=== PATIENT | female | born 1935 | race Caucasian/White ===

== ENCOUNTER → 2016-06-01 16:29 | Outpatient (CLI) | payer MEDICARE ==
[2014-12-08 13:33] VITALS: BMI 19.0
[~2016-06-01 16:29] MED LIST: ADVAIR 500/501 DISK INH; COREG6.25 MG OR; FAMOTIDINE10 MG; IPRAT-ALBUT 0.5-3 ML INH; K-DUR20 MEQ PO; LASIX40 MG OR; LEVAQUIN750 MG PO; LISINOPRIL5 MG PO; LOPRESSOR25 MG PO; MILK OF MAGNESI30 ML OR; PRILOSEC20 MG PO; THEOCHRON300 MG OR; TRAZODONE HCL150 MG PO
== END | disposition home or self-care (01) ==
LOC: D.MAMMO 11:30
DX: Z12.31 Encounter for screening mammogram for malignant neoplasm of breast (principal)

== ENCOUNTER → 2016-11-18 08:16 | Outpatient (CLI) | payer MEDICARE ==
[2014-12-08 13:33] VITALS: BMI 19.0
== END | disposition home or self-care (01) ==
LOC: D.RT 11-16 11:00
DX: J44.9 Chronic obstructive pulmonary disease, unspecified (principal)

== ENCOUNTER 2016-12-10 18:10 | Inpatient (IN) | payer MEDICARE ==
[~2016-12-10] VITALS: Ht 157.5 cm; Wt 52.2 kg
--- NOTE | ~2016-12-10 | PRO ---
PATIENT:HEBER BISHOP MEDICAL RECORD: [id number] : 31 LOCATION:D.M2 D.2114 ADMISSION DATE: 12/10/16 PROCEDURE PERFORMED BY: JOHN FOFANA MD PROCEDURE DATE: 12/10/16 DATE OF PROCEDURE: 12/12/2016 PATIENT ESCORT: John Fofana MD PROCEDURE: EGD with biopsy. INDICATION: The patient is an 80-year-old white female with history of COPD, CHF, hypertension and bronchiectasis, who was admitted with significant anemia. She denies any obvious GI blood loss. She is on aspirin and Eliquis at home. Her last colonoscopy was in January 2016 and was normal other than mild sigmoid diverticulosis. Her last EGD was in September 2015 and revealed mild reflux induced esophagitis and moderate erosive antral gastritis felt due to aspirin/Aleve. She still is on a baby aspirin a day and takes Aleve only rarely now, ____ about once a month per her report. She had an admission in January 2014 with a small-bowel obstruction, which led to exploratory laparotomy with lysis of adhesions. She does have a remote history of colon polyps as well as chronic intermittent dysphagia status post multiple dilations in the past. She is now for EGD. PREMEDICATION: Taper anesthesia. INSTRUMENT: Olympus video gastroscope. FINDINGS: The endoscope was passed through the oropharynx to the second portion of the duodenum without difficulty. The esophagus was basically normal other than a very large 10 cm hiatal hernia with some mild Juan erosions. She also had mild erosive antral gastritis, probably from aspirin/occasional Aleve use. The duodenum was entered and was completely normal. Biopsy obtained from stomach to rule out H. pylori by means of histology. The rest of exam was normal. She had no ulcerations or AVMs seen. The patient tolerated the procedure well without any immediate complication. IMPRESSION: 1. Development of a large hiatal hernia associated with Juan erosions most likely cause of slow gastrointestinal blood loss exacerbated by her aspirin and Eliquis use. 2. Mild erosive antral gastritis, probably due to her aspirin daily and occasional Aleve. 4. Otherwise, normal esophagogastroduodenoscopy. RECOMMENDATIONS: 1. I will increase her omeprazole or Protonix to twice daily. 2. Follow up gastric biopsies. 3. Okay for discharge planning for me. 4. This lady will now be at risk for long-term anemia with slow PROCEDURE NOTE [id number] HEBER BISHOP gastrointestinal blood loss due to her large hiatal hernia and Juan erosions. ____ especially with her being on blood thinners. I suspect it would be best for her to stop her aspirin and then continue her Eliquis. She needs to have her hematocrit checked about every month or so. Another option would be to add low dose long-term iron supplementation such as 325 mg of iron sulfate daily. However, it will cause her stool to turn dark/black which can be a complicating and confusing issue to all involved long-term. 5. Regular diet. TRANSINT:[id number] Voice Confirmation ID: [id number] DOCUMENT ID: [id number] JOHN FOFANA MD CC: LIZA YOON MD [id number] DICTATION DATE: 12/12/161735 DEPUTY COURT CLERK: 12/15/16 0042 DIS IN 12/13/16 [facility] [address] [place] [address]
[2016-12-10 19:43] LABS: BASOPHILS 0.6 % (0-2); EOSINOPHILS 3.8 % (0-7); IMMATURE GRANULOCYTES 0.3 % (0-5); LYMPHOCYTES 19.5 % (15-50); MCH 20.5 pg (26.0-34.0); MCHC 28.5 g/dL (31.0-37.0); MONOCYTES 12.8 % (2-11); RBC 3.61 10x6/uL (4.00-5.40); RDW 17.2 % (11.5-14.5); WBC 9.8 10x3/uL (4.8-10.8)
[2016-12-10 19:46] LABS: PLATELET COUNT 320 10x3/uL (130-400)
[2016-12-10 19:47] LABS: HEMOGLOBIN 7.4 g/dL (12-16)
[2016-12-10 19:52] LABS: INR 1.27 (0.85-1.17); PROTIME 15.8 SECONDS (11.6-15.0)
[2016-12-10 19:56] LABS: ALBUMIN 2.9 g/dL (3.4-5.0); ALKALINE PHOSPHATASE 67 U/L (46-116); ALT (SGPT) 12 U/L (10-68); CALC OSMOLALITY 294 mosm/kg (275-300); CALCIUM 9.6 mg/dL (8.5-10.1); CARBON DIOXIDE 30.6 mmol/L (21.0-32.0); CHLORIDE - SERUM 106 mmol/L (98-107); CREATININE - SERUM 1.5 mg/dL (0.6-1.3); SODIUM 144 mmol/L (136-145); UREA NITROGEN 30 mg/dL (7-18); eGFR NON AFRICAN AMERICAN 35 mL/min (90-120)
[2016-12-10 19:58] LABS: GLUCOSE 132 mg/dL (74-106)
[2016-12-10 20:06] LABS: CREATINE KINASE 35 UL (21-215); MAGNESIUM - SERUM 2.2 mg/dL (1.8-2.4); PRO BNP 1307 pg/mL (0-450)
[2016-12-10 20:07] LABS: TROPONIN-I < 0.017 ng/mL (0.000-0.060)
--- NOTE | 2016-12-10 20:45 | NUR ---
PT ARRIVES FROM ER ACCOMPANIED BY MULTIPLE FAMILY MEMBERS AND FISHER TROLL LINE. ASSISTED INTO BED. TELEMETRY PLACED ONTO PT, NSR ON THE MONITOR - NO ECTOPICS SEEN. O2 2LPM NC PLACED, SATS 96%. MEDICATIONS RECONCILED ASND ADMISSION ASSESSMENT AND HISTORY COMPLETED. UNIT ROUNTINES AND PROTOCOLS DISCUSSED WITH PT AND FAMILY, VERBALIZED UNDERSTANDING. CALL LIGHT PLACED WITHIN REACH. WILL CONT TO MONITOR.
[2016-12-10 21:33] VITALS: BP 129/56; BMI 21.0
[2016-12-10 23:42] LABS: CKMB 0.3 U/L (0.0-3.6); CREATINE KINASE 37 UL (21-215); TROPONIN-I < 0.017 ng/mL (0.000-0.060)
--- NOTE | 2016-12-11 00:25 | NUR ---
FIRST UNIT OF BLOOD INFUSING TO 20 GAUGE IN LEFT FOREARM, VITALS STABLE. TEMP 98.1, HR 71, RESPERATIONS EVEN AT 16, BP 123/52.
--- NOTE | 2016-12-11 03:23 | NUR ---
FIRST UNIT OF PRBCS FINISHED INFUSING, VITALS STABLE. LINE FLUSHING WITH NS. UP WITH ASSIST TO BR.
--- NOTE | 2016-12-11 03:25 | NUR ---
NO S/S ADVERSE REACTION NOTED FROM FIRST UNIT OF RBCS GIVEN.
[2016-12-11 04:00] VITALS: BP 134/65
--- NOTE | 2016-12-11 04:22 | NUR ---
SECOND UNIT OF PRBCS INFUSING, VITALS REMIAN STABLE. WILL CONT TO MONITOR.
--- NOTE | 2016-12-11 06:58 | NUR ---
SECOND UNIT OF PRBCS FINISHED INFUSING, LINE FLUSHING WITH NS. VITALS STABLE, NO S/S ADVERSE REACTION NOTED. AT BED SIDE.
--- NOTE | 2016-12-11 07:45 | NUR ---
PT RESTING QUIETLY RESP UNLABORED NAD NOTED AT BEDSIDE
[2016-12-11 08:00] VITALS: BP 160/80
[2016-12-11 09:45] LABS: CKMB 0.3 U/L (0.0-3.6); CREATINE KINASE 44 UL (21-215)
[2016-12-11 09:46] LABS: TROPONIN-I < 0.017 ng/mL (0.000-0.060)
[2016-12-11 10:54] LABS: BASOPHILS 0.9 % (0-2); EOSINOPHILS 3.9 % (0-7); HEMATOCRIT 34.8 % (36.0-48.0); HEMOGLOBIN 10.6 g/dL (12-16); IMMATURE GRANULOCYTES 0.5 % (0-5); LYMPHOCYTES 14.8 % (15-50); MCH 22.9 pg (26.0-34.0); MCHC 30.5 g/dL (31.0-37.0); MCV 75.2 fL (80.0-100.0); MEAN PLATELET VOLUME 8.3 fL (7.4-10.4); MONOCYTES 15.4 % (2-11); NEUTROPHILS 64.5 % (40-80); PLATELET COUNT 330 10x3/uL (130-400); RBC 4.63 10x6/uL (4.00-5.40); RDW 18.1 % (11.5-14.5); WBC 8.2 10x3/uL (4.8-10.8)
[2016-12-11 11:13] LABS: CALC OSMOLALITY 283 mosm/kg (275-300); CALCIUM 8.6 mg/dL (8.5-10.1); CARBON DIOXIDE 31.1 mmol/L (21.0-32.0); CHLORIDE - SERUM 102 mmol/L (98-107); CKMB 0.3 U/L (0.0-3.6); CREATINE KINASE 45 UL (21-215); CREATININE - SERUM 1.5 mg/dL (0.6-1.3); GLUCOSE 106 mg/dL (74-106); POTASSIUM - SERUM 3.7 mmol/L (3.5-5.1); SODIUM 140 mmol/L (136-145); TROPONIN-I < 0.017 ng/mL (0.000-0.060); UREA NITROGEN 27 mg/dL (7-18); eGFR NON AFRICAN AMERICAN 35 mL/min (90-120)
[2016-12-11 12:00] VITALS: BP 136/69
[2016-12-11 16:00] VITALS: BP 116/66
[2016-12-11 16:51] LABS: HEMOGLOBIN 10.7 g/dL (12-16)
--- NOTE | 2016-12-11 20:34 | NUR ---
RESUMED CARE OF PT, LYING IN BED RESPIRATIONS EVEN AND UNLABORED ON 2LPM VIA NC. 80 SR ON TELEMETRY. LEFT FOREARM SALINE LOCKED. PLAN OF CARE DISCUSSED. CALL LIGHT IN REACH. WILL CONITNUE TO MONITOR. SEE NURSE ASSESSMENT.
[2016-12-11 22:41] VITALS: BP 109/55
[2016-12-12 01:14] LABS: HEMATOCRIT 35.3 % (36.0-48.0); HEMOGLOBIN 10.8 g/dL (12-16)
[2016-12-12 02:51] VITALS: BP 110/60
--- NOTE | 2016-12-12 03:03 | NUR ---
CALL LIGHT IN REACH, WILL CONTINUE WITH PLAN OF CARE. 68 SR ON TELEMETRY
[2016-12-12 05:27] VITALS: BP 108/58
[2016-12-12 08:00] VITALS: BP 106/58
[2016-12-12 08:53] LABS: HEMATOCRIT 36.2 % (36.0-48.0)
--- NOTE | 2016-12-12 09:36 | NUR ---
TELEMETRY ST. RESP UL ON 02 2L MI. NPO FOR EGD. WILL CONT. PLAN OF CARE.
[2016-12-12 12:00] VITALS: BP 119/83
[2016-12-12 12:47] VITALS: Ht 157.5 cm; Wt 52.2 kg
[2016-12-12 16:00] VITALS: BP 115/56
[2016-12-12 16:06] LABS: HEMATOCRIT 36.4 % (36.0-48.0)
--- NOTE | 2016-12-12 16:51 | NUR ---
LEAVING FOR GI LAB BY BED.
--- NOTE | 2016-12-12 19:28 | NUR ---
RESUMED CARE OF PT, UP IN BED RESPIRATIONS EVEN AND UNLABORED ON ROOM AIR. 98 SR ON TELEMETRY. LEFT FOREARM SALINE LOCKED. NO NEEDS VOICED AT THIS TIME. CALL LIGHT IN REACH. WILL CONTINUE TO MONITOR. SEE NURSE ASSESSMENT.
[2016-12-12 21:50] VITALS: BP 103/53
--- NOTE | 2016-12-13 00:28 | NUR ---
MECHANICAL FITTER AT BEDSIDE TO OBTAIN VITALS, CALL LIGHT IN REACH. WILL CONTINUE WITH PLAN OF CARE.
[2016-12-13 01:18] VITALS: BP 136/72
[2016-12-13 05:35] VITALS: BP 113/60
[2016-12-13 06:33] LABS: ANION GAP 13.3 mmol/L (8-16); CALCIUM 8.2 mg/dL (8.5-10.1); CARBON DIOXIDE 26.3 mmol/L (21.0-32.0); CREATININE - SERUM 1.3 mg/dL (0.6-1.3); POTASSIUM - SERUM 3.6 mmol/L (3.5-5.1)
[2016-12-13 06:50] LABS: BASOPHILS 0.4 % (0-2); EOSINOPHILS 3.5 % (0-7); HEMATOCRIT 35.1 % (36.0-48.0); HEMOGLOBIN 10.6 g/dL (12-16); IMMATURE GRANULOCYTES 0.2 % (0-5); LYMPHOCYTES 14.6 % (15-50); MCH 23.1 pg (26.0-34.0); MCHC 30.2 g/dL (31.0-37.0); MCV 76.6 fL (80.0-100.0); MEAN PLATELET VOLUME 8.6 fL (7.4-10.4); NEUTROPHILS 65.3 % (40-80); PLATELET COUNT 320 10x3/uL (130-400); RBC 4.58 10x6/uL (4.00-5.40); RDW 18.9 % (11.5-14.5); WBC 9.7 10x3/uL (4.8-10.8)
[2016-12-13 08:00] VITALS: BP 104/67
--- NOTE | 2016-12-13 11:22 | NUR ---
02 SAT 90% ON RA AT REST. 02 SAT DROPPED TO 86% ON RA AMNULATING HALLWAY. WILL MONITOR.
[2016-12-13 12:00] VITALS: BP 102/48
[2016-12-13] MEDS ORDERED: ELIQUIS2.5 MG PO (12:42)
--- NOTE | 2016-12-13 15:09 | NUR ---
Patient Name: HEBER BISHOP Admission Status: ER Accout number: [id number] Admission Date: 12-10-2016 : 1935 Admission Diagnosis:SHORTNESS OF BREATH Attending: CHUCK Current LOS: 3 Anticipated DC Date: 12-13-2016 Planned Disposition: Home Primary Insurance: [employer] CHOICE PPO MCR ADVANT Discharge Planning Comments: * Is the patient Alert and Oriented? Yes 0 * How many steps to enter\exit or inside your home? NONE 0 * PCP DR. YOON 0 * Pharmacy [facility] 0 * Preadmission Environment Home with Family 0 * ADLs Independent 0 * Equipment Nebulizer 0 * Other Equipment NEBULIZER FROM A FAMILY MEMBER - REQUESTING NEW ONE NO MEDICAL EQUIPMENT PROVIDER PREFERENCE 0 * List name and contact numbers for known caregivers / representatives who currently or will assist patient after discharge: STEPHAN VO, DAUGHTER, BELLO BISHOP, SPOUSE, 0 * Community resources currently utilized None 0 * Please name any agencies selected above. NONE 0 * Additional services required to return to the preadmission environment? No 0 * Can the patient safely return to the preadmission environment? Yes 0 * Has this patient been hospitalized within the prior 30 days at any hospital? No 0 CM MET WITH PT AND FAMILY IN ROOM TO DISCUSS DISCHARGE PLANNING AND NEEDS. PT REPORTS LIVING AT HOME INDEPENDENTLY WITH HERSPOUSE. PT HAS NEBULIZER FROM A FAMILY MEMBER AT HOME THAT IS VERY OLD AND WANTS A NEW ONE. PT HAS NO MEDICAL EQUIPMENT PROVIDER PREFERENCE AND NO OUTSIDE SERVICES ASSISTING IN THE HOME. CM DISCUSSED AVAILABILITY OF HOME HEALTH, REHAB SERVICES AND MEDICAL EQUIPMENT. PT DENIES DISCHARGE NEEDS OTHER THAN OXYGEN WHICH PT'S DAUGHTER FEELS PT HAS NEEDED FOR A LONG TIME BUT NEVER QUALIFIED; PT'S DAUGHTER IS HERE TO PICK PT UP FOR DISCHARGE HOME TODAY. IMPORTANT MESSAGE FROM MEDICARE PROVIDED AND EXPLAINED. VAISHNAVI CALLED [facility], , SPOKE TO LEONORA WHO WILL ARRANGE PORTABLE OXYGEN TO BE DELIVERED TO PT IN ROOM FOR DISCHARGE HOME AND ONCE PT GETS HOME, [facility] TO INSTALL HOME UNIT THERE. VAISHNAVI NOTIFIED LEONORA THAT DR. IRWIN DIRECTED VAISHNAVI TO NOTIFY MARINA TO CONTACT DR. YOON FOR ANY NEEDED SIGNATURES AND PAPERWORK. VAISHNAVI FAXED INFORMATION AND SIGNED ORDER TO [phone]. BARIATRIC PHYSICIAN AND PT / FAMILY NOTIFIED. Fish Conservationist: Isidoro Baer
--- NOTE | 2016-12-13 16:14 | NUR ---
IV AND TELEMETRY DCD. DC PLANS GIVEN. UNDERSTANDING VOICED. ESCORTED TO CAR BY W/C.
== END 2016-12-13 16:15 | disposition home or self-care (01) | DRG 811 ==
LOC: D.ER 18:10 → D.M2 20:31 → OBSVTIME 20:32 → D.M2 23:20
PROVIDERS: Emergency Medicine; Internal Medicine Gastroenterology; ADMIT Emergency Medicine
PROC: 0DB68ZX Excision of Stomach, Via Natural or Artificial Opening Endoscopic, Diagnostic (ICD-10-PCS; principal; 2016-12-12 17:00)
DX: D50.9 Iron deficiency anemia, unspecified (principal); K29.01 Acute gastritis with bleeding; I24.8 Other forms of acute ischemic heart disease; I48.0 Paroxysmal atrial fibrillation; I11.0 Hypertensive heart disease with heart failure; I50.9 Heart failure, unspecified; J44.9 Chronic obstructive pulmonary disease, unspecified; K44.9 Diaphragmatic hernia without obstruction or gangrene

== ENCOUNTER 2017-01-25 09:20 | Outpatient (CLI) | payer MEDICARE ==
[2016-12-12 12:47] VITALS: BMI 21.0
--- NOTE | ~2017-01-25 | HEMODYNAMI ---
PATIENT:HEBER BISHOP MEDICAL RECORD: [id number] : 31 [id number] ADMISSION DATE: 01/25/17 Generatedon:01/25/201712:18 Patient name: HEBER BISHOP Patient #: [id number] SSN: : 1935 Date of study: 01/25/2017 Page: Of Hemodynamic Procedure Report Patient Data Patient Demographics Procedure consent was obtained First Name: HEBER Gender: Female Last Name: EDNA : 1935 [facility] Initial: TOMEKA Age: 81 year(s) Patient #: [id number] Race: Unknown Additional ID: [id number] Contact details [address]: [address] [place] [address] DRIVE State: [place] City: [place] Zip code: [address] Past Medical History Allergies: No known allergies Admission Admission Data Admission Date: 01/25/2017 Admission Time: 9:20 Height (in.): 59.84 BSA: 2.04 (m2) Height (cm.): 152 BMI: 48.48 (kg/m2) Weight (lbs.): 246.92 Weight (kg.): 112 Lab Results Lab Result Date: 01/25/2017 Lab Result Time: 0:00 Biochemistry Name Units Result Min Max BUN mg/dl 15 --(--*-)-- 7 18 CK-MB ng/ml 0.5 --(*---)-- 0 3.6 Creatinine mg/dl 1.2 --(---*)-- 0.6 1.3 Creatinine l 43 --(*---)-- 21 215 Kinase Troponin l ng/ml 0.017 --(-*--)-- 0 0.06 CBC Name Units Result Min Max Hemoglobin g/dl 10.6 *-(----)-- 13.5 17.5 Procedure Procedure Types Cath Procedure Diagnostic Procedure [facility] w/Coronaries FFR/IVUS Intra-Coronary IVUS Initial PCI Procedure Coronary Stent Initial Miscellaneous Procedures Moderate Sedation up to 15 minutes Procedure Description Procedure Date Procedure Date: 01/25/2017 Procedure Start Time: 11:52 Procedure End Time: 12:15 Procedure Staff Name Function Sonu Johnson MD Performing Physician Yumiko Marcus RT Scrub Bijal Del Real RN Nurse Susie Melo RT Monitor Procedure Data Cath Procedure Fluoroscopy Diagnostic fluoroscopy Total fluoroscopy Time: 5.3 time: 5.3 min min Diagnostic fluoroscopy Total fluoroscopy dose: 530 dose: 530 mGy mGy Contrast Material Contrast Material Type Amount (ml) Isovue 300 99 Entry Location Entry Primary Successful Side Size Upsize Upsize Entry Closure Hernandez ccessful Closure Location (Fr) 1 (Fr) 2 (Fr) Remarks Device Remarks Radial Right 6 Fr Mechanical artery Short Compression Femoral Right 5 Fr 6 Fr Exoseal artery Short Estimated blood loss: 10 ml Diagnostic catheters Device Type Used For End Catheter Placement Cordis 5Fr Pigtail Procedure Catheter (MP) Cordis 5Fr JL 4.0 Left Coronary Catheter (MP) Angiography Cordis 5Fr 3DRC Catheter Procedure (MP) Procedure Complications No complications Procedure Medications Medication Administration Route Dosage Oxygen NC 2 l/min Heparin Flush Bag added to field 2 bags (1000units/500ml NS) Lidocaine 2% added to field 20 Radial Cocktail added to field 1 syringe (Verapomil 2mg/Nitro 400mcg/Heparin 1500units) Fentanyl I.V. 50 mcg Versed I.V. 1 mg Radial Cocktail I.A. 1 syringe (Verapomil 2mg/Nitro 400mcg/Heparin 1500units) Heparin Bolus I.V. 4000 units Integrilin (Bolus 4.5 ml 2mg/ml) Hemodynamics Rest BSA: 2.04 (m2) HGB: 10.6 (g/dl) O2 Consumption: Estimated: 172.22 (ml/min) O2 Co nsumption indexed: Estimated:84.42 (ml/min/m) Heart Rate: 57 (bpm) Snapshots Pre Cath Intra NCS Post Cath Vital Signs Time Heart Resp SPO2 NIBP (mmHg) Rhythm Pain Sedation Rate (ipm) (%) Status Level (bpm) 11:53:36 66 12 86 161/81(118) NSR 0 (11) 9(A) , No pain 11:57:52 92 16 85 134/76(114) NSR 0 (11) 9(A) , No pain 12:02:08 83 17 92 135/51(105) NSR 0 (11) 9(A) , No pain 12:06:18 84 19 93 140/71(108) NSR 0 (11) 9(A) , No pain 12:10:26 85 17 97 145/78(111) NSR 0 (11) 9(A) , No pain 12:14:40 84 17 97 134/69(88) NSR 0 (11) 9(A) , No pain Medications Time Medication Route Dose Verified Delivered Reason Note s Effectiveness by by 11:43:52 Oxygen NC 2 l/min Bijal Bijal used for Del Real Del Real charger tester RN 11:43:58 Heparin Flush added 2 bags Bijal Bijal used for Bag to Del Real Del Real procedure (1000units/500ml field RN RN NS) 11:44:06 Lidocaine 2% added 20ml Bijal Bijal used for to vial Del Real Del Real procedure field RN RN 11:44:34 Radial Cocktail added 1 Bijal Bijal used for (Verapomil to syringe Del Real Del Real procedure 2mg/Nitro field RN RN 400mcg/Heparin 1500units) 11:52:05 Fentanyl I.V. 50 mcg Bijal Bijal for sedation Del Real Del Real RN RN 11:52:14 Versed I.V. 1 mg Bijal Bijal for sedation Del Real Del Real RN RN 11:55:13 Radial Cocktail I.A. 1 Bijal Sonu for (Verapomil syringe Del Real Louisth MD vasodilation 2mg/Nitro RN 400mcg/Heparin 1500units) 12:03:33 Heparin Bolus I.V. 4000 Bijal Bijal for units Del Real Del Real anticoagulation RN RN 12:05:13 Integrilin 4.5 ml Bijal Bijal for 5.5m l (Bolus 2mg/ml) Del Real Del Real anticoagulation bolus RN RN integrilin wasted Procedure Log Time Note 11:32:45 Patient Height : 152 cm 11:32:58 Patient Weight : 112 kg 11:33:56 Diagnostic Cath status Elective 11:33:59 Yumiko Marcus RT(R) sent for patient. Start room use. 11:34:00 Time tracking: Regular hours 11:34:05 Plan of Care:Hemodynamics will remain stable., Cardiac rhythm will remain stable., Comfort level will be maintained., Respiratory function will remain adequate., Patient/ family verbilizes understanding of procedure., Procedure tolerated without complication., Recovers from procedure without complications.. 11:34:10 Patient received from ED to CCL 2 Alert and oriented. Tansferred to table in Supine position. 11:34:11 Warm blankets applied, and kandy hugger turned on for patient comfort. 11:34:12 Correct patient and procedure confirmed by team. 11:34:13 Signed procedure consent form obtained from patient. 11:34:28 H&P Date Dictated: 01/25/2017 Emergent; H&P N/A. 11:34:30 Pre-procedure instructions explained to patient. 11:34:49 Family in waiting room. 11:34:51 Patient NPO since Midnight. 11:35:09 Patient allergic to No known allergies 11:35:31 Is the patient allergic to Iodine/contrast media? No. 11:36:05 Is patient on blood thinner?No 11:36:19 Patient diabetic? No. 11:36:30 Snore? Yes 11:36:32 Sleep apnea? No 11:36:40 Airway obstruction? Yes COPD 11:36:43 Dentures? No ? 11:37:02 Patient pain scale 3/10 ?. 11:37:12 IV patent on arrival in left forearm with 0.9% NaCl at O. 11:38:22 Lab Result : Creatinine 1.2 mg/dl 11:38:22 Lab Result : BUN 15 mg/dl 11:38:22 Lab Result : CK-MB 0.5 ng/ml 11:38:22 Lab Result : Troponin l 0.017 ng/ml 11:38:22 Lab Result : Creatinine Kinase 43 l 11:38:22 Lab Result : Hemoglobin 10.6 g/dl 11:38:27 Lab results completed and on chart. 11:38:31 Right Radial & Right Groin area was prepped with chlora-prep and draped in sterile fashion 11:38:35 Alarms reviewed by R. N. 11:38:35 Sharps counted by scrub and verified by R.N. 11:38:36 Physician paged 11:38:38 Physician arrived 11:43:52 Oxygen 2 l/min NC was administered by Bijal Del Real RN; used for procedure; 11:43:58 Heparin Flush Bag (1000units/500ml NS) 2 bags added to field was administered by Bijal Del Real RN; used for procedure; 11:44:06 Lidocaine 2% 20ml vial added to field was administered by Bijal Del Real RN; used for procedure; 11:44:34 Radial Cocktail (Verapomil 2mg/Nitro 400mcg/Heparin 1500units) 1 syringe added to field was administered by Bijal Del Real RN; used for procedure; 11:44:44 ECG and BP/O2 sat monitors applied to patient. 11:44:45 Vital chart was started 11:44:46 Baseline sample Acquired. 11:44:50 Rhythm: sinus rhythm 11:44:52 Full Disclosure recording started 11:46:18 --------ALL STOP TIME OUT------ 11:46:19 Final Timeout: patient, procedure, and site verified with staff and physician. All members of the team are in agreement. 11:46:21 Right Radial & Right Groin site verified by team. 11:46:28 Sedation plan: IV Moderate Sedation Versed, Fentanyl 11:52:05 Fentanyl 50 mcg I.V. was administered by Bijal Del Real RN; for sedation; 11:52:07 Zero performed for pressure channel P1 11:52:14 Versed 1 mg I.V. was administered by Bijal Del Real RN; for sedation; 11:52:27 Use device set Radial Dx 11:52:30 Procedure started. 11:52:39 Local anesthetic to right radial artery with Lidocaine 2% by Sonu Johnson MD.INITIAL ACCESS ONLY 11:52:47 Acist Syringe opened to sterile field. 11:52:47 Medline Cath Pack opened to sterile field. 11:52:47 Bag Decanter opened to sterile field. 11:52:48 Terumo 6Fr Slender Glidesheath opened to sterile field. 11:52:48 St Smooth 260cm J .035 wire opened to sterile field. 11:52:49 Acist Hand Control opened to sterile field. 11:52:49 Acist Manifold opened to sterile field. 11:52:50 Tegaderm 4 x 4 opened to sterile field. 11:52:50 MBrace Wrist Support opened to sterile field. 11:55:00 A 6 Fr Short sheath was inserted into the Right Radial artery 11:55:05 J wire advanced. 11:55:13 Radial Cocktail (Verapomil 2mg/Nitro 400mcg/Heparin 1500units) 1 syringe I.A. was administered by Sonu Johnson MD; for vasodilation; 11:56:17 J wire unable to cross elbow 11:56:27 Terumo 5Fr Foss Sheath opened to sterile field. 11:56:36 Local anesthetic to right femoral artery with Lidocaine 2% by Sonu Johnson MD.ADDITIONAL ACCESS 11:56:46 A 5 Fr sheath was inserted into the Right Femoral artery 11:56:56 Use device set Multipack Set 11:57:00 Diagnostic Infinity 5Fr Multipack catheter opened to sterile field. 11:57:13 J wire advanced. 11:57:24 A Cordis 5Fr Pigtail Catheter (MP) was advanced over the wire and used for Procedure. 11:58:06 LV angiography performed. 11:58:18 EF : 60 % 11:58:25 Catheter removed. 11:58:34 A Cordis 5Fr JL 4.0 Catheter (MP) was advanced over the wire and used for Left Coronary Angiography. 11:59:58 Catheter removed. 12:00:09 A Cordis 5Fr 3DRC Catheter (MP) was advanced over the wire and used for Procedure. 12:02:34 Terumo 6Fr Foss Sheath opened to sterile field. 12:02:35 Desai Whisper J 300cm 0.014 guide wire opened to sterile field. 12:02:36 Aireon BasixCompak Inflation Kit opened to sterile field. 12:02:37 [place]ogales Three Affiliated Eagleye IVUS Catheter opened to sterile field. 12:02:51 Sheath upsized to a 6 Fr Short. 12:02:59 Medtronic Launcher 6Fr EBU 3.0 SH guide catheter opened to sterile field. 12:03:27 Whisper wire advanced. 12:03:33 Heparin Bolus 4000 units I.V. was administered by Bijal Del Real RN; for anticoagulation; 12:03:37 Study PCI Site: [place] mLAD has 80% stenosis. 12:03:46 IVUS catheter advanced over wire. 12:05:13 Integrilin (Bolus 2mg/ml) 4.5 ml was administered by Bijal Del Real RN; for anticoagulation; 5.5ml bolus integrilin wasted 12:06:43 IVUS catheter removed over wire. 12:08:59 Inflation Number: 1 A Biofreedom 2.25 x 8 Stent (No Cost Implant) was prepped and advanced across the Mid LAD. The stent was deployed at 13 FRANKO for 0:10 (min:sec). 12:10:02 Stent catheter was removed intact over wire. 12:10:03 Wire removed. 12:10:04 Guide catheter removed. 12:10:36 Sheath removed intact; hemostasis achieved with Exoseal to the Right Femoral artery. 12:10:48 Terumo TR Band Standard opened to sterile field. 12:11:34 Procedure ended.(Physican Out) 12:11:45 Fluoroscopy time 05.30 minutes. 12:11:47 Fluoroscopy dose: 530 mGy 12:11:47 Flurop Dose total: 530 12:11:51 Contrast amount:Isovue 300 99ml. 12:11:53 Sharps counted by scrub and verified by R.N. 12:11:59 TR band inflated with 10cc of air. 12:12:00 Insertion/operative site no bleeding no hematoma. 12:12:09 Post-op/insertion site Right Femoral artery dressed using a 4 x 4 and Tegaderm. 12:12:24 Sheath removed intact; hemostasis achieved with Mechanical Compression to the Right Radial artery. 12:12:35 Post Procedure Pulses reassessed and unchanged 12:12:38 Post-procedure physical assessment completed. ASA score P 2 - A patient with mild systemic disease as per Sonu Johnson MD. 12:12:41 Post procedure rhythm: unchanged. 12:12:44 Estimated blood loss: 10 ml 12:12:45 Post procedure instruction explained to patient.Patient verbalizes understanding. 12:13:06 Procedure type changed to Cath procedure, Diagnostic procedure, LHC, LHC w/Coronaries, FFR/IVUS, Intra-Coronary IVUS Initial, PCI procedure, Coronary Stent Initial, Miscellaneous Procedures, Moderate Sedation up to 15 minutes 12:13:10 Procedure and supply charges have been captured, reviewed, submitted and are correct. 12:14:34 Procedure Complication : No complications 12:14:52 St Smooth Femstop Arch Gold opened to sterile field. 12:14:56 Femstop placed over the right femoral artery at ? mmHg. Hemostasis achieved. 12:15:06 Vital chart was stopped 12:15:21 See physician's report for complete and final results. 12:15:25 Patient transfered to Pre/Post Procedure Room with Stretcher. 12:15:33 Procedure ended. 12:15:33 Full Disclosure recording stopped 12:15:41 End room use (Document Last) 12:15:54 ACC-PCI Only Patient was given prescriptions, or instructed by Sonu Johnson MD to start/continue the following medications upon discharge: Plavix Intervention Summary Intervention Notes Time ActionType Lesion and Equipment Action# Pressure Duration Attributes Used 12:08:59 Place stent Mid LAD Biofreedom 1 13 00:10 2.25 x 8 Stent (No Cost Implant) Device Usage Item Name Manufacture Quantity Catalog Hospital Part Current Minimal Lot# / Number Charge Number Stock Stock Serial# Code Acist Acist 1 64761 906005 928115 152490 20 Syringe Medical Systems Inc Medline Cardinal 1 [id number] 175123 42489 069053 5 Cath Pack Health Bag Microtek 1 2002S 910030 18368 251554 5 Nextnav Inc. Terumo 6Fr Terumo 1 [id number] 435297 827476 709824 [address] Smooth St Smooth 1 [id number] 311692 040429 858481 30 260cm J .035 wire Acist Hand Acist 1 66670 074349 372411 556776 5 Control Medical Systems Inc Acist Acist 1 18330 405043 766206 660199 5 Manifold Medical Systems Inc Tegaderm 4 3M 1 1626W 266139 043107 282673 5 x 4 MBrace Advanced 1 140-0250-00 768541 31821 676948 5 Wrist Vascular Support Dynamics Terumo 5Fr Terumo 1 [id number] 611757 481179 673380 40 Foss Sheath Diagnostic Cardinal 1 [id number] 347462 51224 219436 30 Infinity Health 5Fr Multipack catheter Cordis 5Fr Cardinal 1 838574 5 Pigtail Health Catheter (MP) Cordis 5Fr Cardinal 1 [id number] 5 JL 4.0 Health Catheter (MP) Cordis 5Fr Cardinal 1 219181 5 3DRC Health Catheter (MP) Terumo 6Fr Terumo 1 [id number] 605375 609810 792163 40 Foss Sheath Desai Desai 1 [id number] 435878 151682 882838 5 Whisper J Vascular 300cm 0.014 guide wire Merit Merit 1 [id number] 867695 948399 386652 15 BasixCompak Medical Inflation Kit Nogales Nogales 1 [id number] 456389 169262 339896 8 Three Affiliated Eagleye IVUS Catheter Medtronic Medtronic 1 [id number] 946055 77294 554605 0 Launcher 6Fr EBU 3.0 SH guide catheter Biofreedom Biosensors 1 [facility]2-3145 598034 508965 5 [id number] 2.25 x 8 Europe SA Stent (No Cost Implant) Terumo TR Terumo 1 [id number] 112334 463671 419512 [address] Sm[address] St Smooth 1 [id number] 133393 789182 250936 5 Femstop Arch Gold Signature Audit [place] Stage Time Signature Unsigned Intra-Procedure 01/25/2017 Susie Melo 12:18:34 PM RT(R) Signatures Monitor : Susie Melo Signature : RT Date : Time : [place] [id number] [place], [place] [id number]
[~2017-01-25 09:20] MED LIST changes: +ELIQUIS2.5 MG PO
[2017-01-25 10:08] LABS: BASOPHILS 0.4 % (0-2); EOSINOPHILS 1.9 % (0-7); HEMATOCRIT 35.2 % (36.0-48.0); HEMOGLOBIN 10.6 g/dL (12-16); IMMATURE GRANULOCYTES 0.2 % (0-5); LYMPHOCYTES 12.8 % (15-50); MCH 24.5 pg (26.0-34.0); MCHC 30.1 g/dL (31.0-37.0); MCV 81.5 fL (80.0-100.0); MEAN PLATELET VOLUME 8.4 fL (7.4-10.4); MONOCYTES 8.2 % (2-11); NEUTROPHILS 76.5 % (40-80); RBC 4.32 10x6/uL (4.00-5.40); RDW 23.5 % (11.5-14.5)
[2017-01-25 10:14] LABS: PLATELET COUNT 229 10x3/uL (130-400)
[2017-01-25 10:28] LABS: ALBUMIN 2.9 g/dL (3.4-5.0); ALKALINE PHOSPHATASE 63 U/L (46-116); ALT (SGPT) 12 U/L (10-68); BILIRUBIN - TOTAL 0.31 mg/dL (0.2-1.3); CALC OSMOLALITY 280 mosm/kg (275-300); CALCIUM 8.9 mg/dL (8.5-10.1); CARBON DIOXIDE 30.8 mmol/L (21.0-32.0); CHLORIDE - SERUM 102 mmol/L (98-107); CREATININE - SERUM 1.2 mg/dL (0.6-1.3); GLUCOSE 108 mg/dL (74-106); POTASSIUM - SERUM 3.9 mmol/L (3.5-5.1); PROTEIN - SERUM 7.1 g/dL (6.4-8.2); SODIUM 140 mmol/L (136-145); UREA NITROGEN 15 mg/dL (7-18); eGFR NON AFRICAN AMERICAN 45 mL/min (90-120)
[2017-01-25 10:32] LABS: CKMB 0.5 U/L (0.0-3.6); CREATINE KINASE 43 UL (21-215); TROPONIN-I < 0.017 ng/mL (0.000-0.060)
--- NOTE | 2017-01-25 12:45 | NUR ---
TR BAND CDI TO RIGHT WRIST, RIGHT GROIN CDI WITH FEMSTOP IN PLACE. HEMATOMA SOFT TO TOUCH, DAUGHTER AT SIDE
[2017-01-25] MEDS ORDERED: PLAVIX75 MG PO (12:50)
--- NOTE | 2017-01-25 13:15 | NUR ---
NO CHANGES NOTED, WATER GIVEN, DAUGHTER AT SIDE
--- NOTE | 2017-01-25 15:35 | NUR ---
EKG DONE AND LAB DRAWN. DAUGHTER AT SIDE. HALF OF AIR OUT OF TR BAND- NO BLEEDING OR HEMATOMA NOTED.
--- NOTE | 2017-01-25 16:30 | NUR ---
IV D'C WITH CATH TIP INTACT, UP TO RESTROOM-VOID. WRITTEN AND VERBAL D'C INSTRUCTIONS GIVEN TO PT AND FAMILY- VERBALLY REINFORCED IMPORTANCE OF NOT USING RIGHT HAND FOR 48 HOURS. D'C HOME WITH FAMILY
--- NOTE | 2017-01-27 13:52 | CN ---
PATIENT NAME:HEBER ORELLANA MEDICAL RECORD: [id number] : 31 LOCATION:D.ER ADMIT DATE: ACCOUNT: [id number] CONSULTING PHYSICIAN: VIC RIVAS MD REFERRING PHYSICIAN: KAMRYN SHARPE MD DATE OF CONSULTATION: 01/25/2017 Cardiology Consult DIAGNOSES: 1. Unstable angina. 2. Coronary artery disease. 3. Atrial fibrillation. 4. Hypertension. 5. Eliquis anticoagulation. 6. Chronic obstructive pulmonary disease. HISTORY OF PRESENT ILLNESS: Mrs. Orellana presents with increasing anginal symptomatology. She presented to our office with this. Her angina has continued to increase. She was set for a nuclear stress test has continued to have worsened chest pain. She now presents to the Emergency Room with this. Her EKG is with no acute ST-T abnormalities, but she continues to have the episodes of chest pain. PHYSICAL EXAMINATION: GENERAL APPEARANCE: Well-nourished, well-developed, appears stated age. Level of distress, comfortable. PSYCHIATRIC: Mental status, alert, normal affect. Orientation, oriented to time, place and person. EYES: Lids and conjunctiva, noninjected. No discharge, no pallor. ENT: Lips, teeth, gums, normal dentition. Oropharynx, no cyanosis, no pallor. NECK: Carotid arteries, bilateral normal upstroke, no bruits, no thrills. JUGULAR VEINS: No jugular venous pressure or distention. CERVICAL LYMPH NODES: Nontender, nonenlarged. THYROID: Not enlarged. Nontender. No nodules. LUNGS: Respiratory effort, unlabored. CHEST: Normal curvature. No thoracic deformity. No chest wall tenderness. Percussion, resonant. Auscultation, clear. No wheezes, no rales, no rhonchi. CARDIOVASCULAR: Precordial exam, nondisplaced. No heaves or pericardial thrills. Rate and rhythm, regular. Heart sounds, normal S1, normal S2. No S3, no gallop, no rub. Systolic murmur, not heard. Diastolic murmur, not heard. EXTREMITIES: No cyanosis, no edema. Peripheral pulses, full and equal in all extremities, except as noted. No bruits appreciated. ABDOMEN: Soft, nondistended. Normal aorta. No bruit. Nontender. No masses. Liver, nontender, no hepatomegaly. Spleen, nontender, no splenomegaly. MUSCULOSKELETAL: No joint tenderness. No joint swelling. No erythema. NEUROLOGICAL: Normal gait, normal strength, normal tone. SKIN: Warm and dry. REVIEW OF SYSTEMS: The patient reports easy bruising but reports no swollen glands. The patient reports no fever, no night sweats, no significant weight gain, no significant weight loss. No significant exercise tolerance. The patient reports no dry eyes, no irritation, no vision change. Patient reports no difficulty hearing and no ear pain. Patient reports no frequent nose bleeds or nose and sinus problems. Patient reports on arm pain on exertion. No CONSULT REPORT [id number] HEBER ORELLANA shortness of breath while lying down. Cardiac: Positive for atrial fibrillation. Positive for COPD. Negative for cancer. Negative for CVA. Negative for CHF. Negative for past PCI or WI. Patient reports no cough, no wheezing or coughing up blood. Patient reports no abdominal pain, no vomiting. Normal appetite. No diarrhea and not vomiting blood. No nausea and no constipation. Patient reports no incontinence. No difficulty urinating. No hematuria. No increased frequency. Patient reports no muscle aches. No weakness, no arthralgias, no back pain. No swelling of the extremities. Patient reports no abnormal mole, no jaundice, no rashes. Reports no loss of consciousness. No weakness and no numbness. No seizures, dizziness, or headaches. The patient reports no depression, no sleep disturbance, feeling safe in a relationship and no alcohol abuse. Patient reports on fatigue. Reports no runny nose or sinus pressure. No itching, no hives, and no frequent sneezing. OVERALL IMPRESSION: Increasing episodes of chest pain in an unstable fashion. We will proceed with coronary angiography. Further care depends upon findings of the angiography. TRANSINT:[id number] Voice Confirmation ID: [id number] DOCUMENT ID: [id number] VIC RIVAS MD at 1352 CC: [id number] DICTATION DATE: 01/25/17 1220 GRAPPLE CREW LEADER: 01/25/17 1807 [facility] [address] [place] [address]
--- NOTE | 2017-01-27 13:52 | OP ---
PATIENT NAME: HEBER BISHOP MEDICAL RECORD: [id number] :31 LOCATION:D.ER ADMISSION DATE: SURGEON: VIC RIVAS MD DATE OF OPERATION: 01/25/2017 PROCEDURES: 1. PTCA stent LAD. 2. Intravascular ultrasound. 3. Left heart catheterization. 4. Selective coronary angiography. 5. Left ventriculogram. PROCEDURE IN DETAIL: After informed consent was obtained and after a detailed explanation of the risks, benefits as well as alternative therapies, the patient elected to proceed with angiogram and angioplasty. The right femoral area was prepped and draped in normal sterile fashion. The right femoral artery was cannulated via modified Seldinger technique with placement of 6-Panamanian sheath. All catheters exchanged through this sheath. FINDINGS: Left ventriculogram was performed in standard 30-degree ARIAS view, reveals good cardiac wall motion throughout all segments. Overall ejection fraction 55%-60%. SELECTIVE CORONARY ANGIOGRAPHY: 1. Left main is with no significant angiographic disease. 2. Left anterior descending has a hazy area proximally; however, this is no greater than 48% confirmed by intravascular ultrasound. The mid vessel has an 80% stenosis. 3. Left circumflex has mild irregularities, but no flow-limiting stenosis. 4. Right coronary has mild irregularities, but no flow-limiting stenosis. PTCA STENT OF THE LAD: This was an 8-mm lesion in a 2.25-mm vessel, JAIR 3 flow before and after the intervention. The intervention was undertaken with a 2.25 x 8 mm BioFreedom stent. Result was 0% residual stenosis. OVERALL IMPRESSION: Successful percutaneous transluminal coronary angioplasty stent of the left anterior descending going from 80% initial stenosis to 0% residual stenosis. TRANSINT:[id number] Voice Confirmation ID: [id number] DOCUMENT ID: [id number] VIC RIVAS MD at 1352 CC: [id number] DICTATION DATE: 01/25/17 1221 CRM TECHNICAL LEAD: 01/25/17 1830 [facility] [address] [place] [address]
== END 2017-01-25 16:30 | disposition home or self-care (01) ==
LOC: D.CATH 09:20 → D.ER 09:20 → EDSTATUS 11:15 → D.CATH 16:30
PROVIDERS: Internal Medicine Interventional Cardiology
DX: I25.110 Atherosclerotic heart disease of native coronary artery with unstable angina pectoris (principal); R07.9 Chest pain, unspecified; I50.9 Heart failure, unspecified; J44.9 Chronic obstructive pulmonary disease, unspecified; I48.91 Unspecified atrial fibrillation; I10 Essential (primary) hypertension; Z00.6 Encounter for examination for normal comparison and control in clinical research program; Z01.812 Encounter for preprocedural laboratory examination
CPT/HCPCS: 93458; 92978; C9600

== ENCOUNTER 2017-01-30 09:29 | Inpatient (IN) | payer MEDICARE ==
[2017-01-30] VITALS (14 sets, daily range): BP systolic 98–169; BP diastolic 57–98; BMI 21.7
[~2017-01-30] VITALS: Ht 152.4 cm; Wt 53.5 kg
--- NOTE | ~2017-01-30 | OP ---
PATIENT NAME: HEBER BISHOP MEDICAL RECORD: [id number] :31 LOCATION:D.[facility] D.CV06 ADMISSION DATE:01/30/17 SURGEON: LIBIA MOSER MD DATE OF OPERATION: 01/30/2017 SURGEON: Libia Moser MD. ANESTHESIA: General, Dr. Hall. 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 PREOPERATIVE DIAGNOSIS: False aneurysm, right groin. POSTOPERATIVE DIAGNOSIS: False aneurysm right groin. INDICATION FOR OPERATION: False aneurysm right groin. FINDINGS OF THE OPERATION: Small false aneurysm in the right groin, approximately 3 cm in diameter. There was a simple puncture site in the common femoral artery that was communicating with the aneurysm. ESTIMATED BLOOD LOSS: Less than 5 cc. DESCRIPTION OF PROCEDURE: After informed consent, adequate preoperative medication evaluation, the patient was brought to the operating room, placed on the table in the supine position. After induction of general anesthesia and application of appropriate monitoring devices, the right groin was prepped and draped in a sterile field, utilizing Betadine scrub, alcohol and Betadine solution. A Betadine-impregnated drape was also used. An oblique incision was made at the inguinal ligament. Dissection carried down the fascia. Hemostasis maintained with electrocautery. The inguinal ligament was elevated and dissection carried down over the aneurysm. The common femoral and distal iliac artery was surrounded with a vessel loop. Dissection was then carried out distally and a Kitner dissector was used for occlusion distally. The gentle traction was placed down the proximal vessel loop and the false aneurysm opened, pressure was held distally with the Kitner dissector. The false aneurysm was removed and the artery underwent debridement on its anterior surface to the adventitial layer. A 6-0 Prolene suture was used for closure of the artery primarily. The vessel loops and Kitner were removed and there was excellent flow through the common femoral artery distally. Hemostasis was assured. The wound was irrigated with copious amounts of antibiotic solution and normal saline. Instrument count and sponge count were correct times 2. The wound was closed in layers utilizing 2-0 Vicryl on deep subcutaneous tissue and 5-0 subcuticular Monocryl on the skin. Sterile dressings were applied. The patient tolerated the procedure well and was transferred to ICU in satisfactory condition. TRANSINT:[id number] Voice Confirmation ID: [id number] DOCUMENT ID: [id number] OPERATIVE REPORT [id number] HEBER BISHOP EDWARD MD CC: [id number] DICTATION DATE: 01/30/17 1615 LANDSCAPE MANAGEMENT TECHNICIAN: 01/30/17 1853 ADM IN [place] [place] [address]
--- NOTE | ~2017-01-30 | DS ---
PATIENT:HEBER BISHOP :31 MEDICAL RECORD: [id number] DISCHARGE SUMMARY ADMISSION DATE: 01/30/17 DISCHARGE DATE: 01/31/17 DISCHARGE DIAGNOSES: 1. Pseudoaneurysm, right groin repair. 2. Peripheral vascular disease. 3. Coronary artery disease. 4. Recent percutaneous transluminal coronary angioplasty stent. 5. Hypertension. 6. Hyperlipidemia. HOSPITAL COURSE: Mrs. Bishop presents with acute right groin pain after PTCA stent last week and found to have a pseudoaneurysm; underwent surgical repair of the pseudoaneurysm, had an uneventful postop course, discharged home with no change in her medications. She will follow up with [facility] as previously scheduled. TRANSINT:[id number] Voice Confirmation ID: [id number] DOCUMENT ID: [id number] VIC RIVAS MD CC: [id number] DICTATION DATE: 02/01/17 1005 TRANSPORTATION SUPERVISOR: 02/01/17 1115 DIS IN 01/31/17 [address] [address] [place] [address]
--- NOTE | ~2017-01-30 | HP ---
PATIENT: HEBER BISHOP MEDICAL RECORD: [id number] ACCOUNT: [id number] LOCATION:[facility] D.CV06 : 31 ADMISSION DATE: 01/30/17 HISTORY AND PHYSICAL EXAMINATION DIAGNOSES: 1. Pseudoaneurysm, right groin. 2. Peripheral vascular disease. 3. Coronary artery disease. 4. Recent percutaneous transluminal coronary angioplasty stent. 5. Hypertension. 6. Hyperlipidemia. HISTORY OF PRESENT ILLNESS: Mrs. Bishop presents with groin pain, PTCA stent earlier in the week, found to have out pseudoaneurysm of the right groin. PHYSICAL EXAMINATION: GENERAL APPEARANCE: Well-nourished, well-developed, appears stated age. Level of distress, comfortable. PSYCHIATRIC: Mental status, alert, normal affect. Orientation, oriented to time, place and person. EYES: Lids and conjunctiva, noninjected. No discharge, no pallor. ENT: Lips, teeth, gums, normal dentition. Oropharynx, no cyanosis, no pallor. NECK: Carotid arteries, bilateral normal upstroke, no bruits, no thrills. JUGULAR VEINS: No jugular venous pressure or distention. CERVICAL LYMPH NODES: Nontender, nonenlarged. THYROID: Not enlarged. Nontender. No nodules. LUNGS: Respiratory effort, unlabored. CHEST: Normal curvature. No thoracic deformity. No chest wall tenderness. Percussion, resonant. Auscultation, clear. No wheezes, no rales, no rhonchi. CARDIOVASCULAR: Precordial exam, nondisplaced. No heaves or pericardial thrills. Rate and rhythm, regular. Heart sounds, normal S1, normal S2. No S3, no gallop, no rub. Systolic murmur, not heard. Diastolic murmur, not heard. EXTREMITIES: No cyanosis, no edema. Peripheral pulses, full and equal in all extremities, except as noted. No bruits appreciated. ABDOMEN: Soft, nondistended. Normal aorta. No bruit. Nontender. No masses. Liver, nontender, no hepatomegaly. Spleen, nontender, no splenomegaly. MUSCULOSKELETAL: No joint tenderness. No joint swelling. No erythema. NEUROLOGICAL: Normal gait, normal strength, normal tone. SKIN: Warm and dry. REVIEW OF SYSTEMS: The patient reports easy bruising but reports no swollen glands. The patient reports no fever, no night sweats, no significant weight gain, no significant weight loss. No significant exercise tolerance. The patient reports no dry eyes, no irritation, no vision change. Patient reports no difficulty hearing and no ear pain. Patient reports no frequent nose bleeds or nose and sinus problems. Patient reports on arm pain on exertion. No shortness of breath while lying down. No history of heart murmur. Patient reports no cough, no wheezing or coughing up blood. Patient reports no abdominal pain, no vomiting. Normal appetite. No diarrhea and not vomiting blood. No nausea and no constipation. Patient reports no incontinence. No difficulty urinating. No hematuria. No increased frequency. Patient reports no muscle aches. No weakness, no arthralgias, no back pain. No swelling of the extremities. Patient reports no abnormal mole, no jaundice, no rashes. Reports no loss of consciousness. No weakness and no numbness. No seizures, dizziness, HISTORY AND PHYSICAL [id number] BISHOP,HEBER TOMEKA or headaches. The patient reports no depression, no sleep disturbance, feeling safe in a relationship and no alcohol abuse. Patient reports on fatigue. Reports no runny nose or sinus pressure. No itching, no hives, and no frequent sneezing. OVERALL IMPRESSION: Acute pseudoaneurysm. We will consult CT surgery for surgical repair. Stable from a cardiovascular standpoint. TRANSINT:[id number] Voice Confirmation ID: [id number] DOCUMENT ID: [id number] VIC RIVAS MD CC: [id number] DICTATION DATE: 01/31/17 1124 LEAD CLINICAL RESEARCH COORDINATOR: 01/31/17 1140 ADM IN [place] [id number] [place] [address]
[~2017-01-30 09:29] MED LIST changes: +PLAVIX75 MG PO
[2017-01-30 10:29] LABS: BASOPHILS 0.7 % (0-2); EOSINOPHILS 3.1 % (0-7); HEMATOCRIT 32.1 % (36.0-48.0); HEMOGLOBIN 9.8 g/dL (12-16); IMMATURE GRANULOCYTES 0.4 % (0-5); LYMPHOCYTES 18.6 % (15-50); MCH 24.7 pg (26.0-34.0); MCHC 30.5 g/dL (31.0-37.0); MCV 81.1 fL (80.0-100.0); MEAN PLATELET VOLUME 7.9 fL (7.4-10.4); NEUTROPHILS 67.2 % (40-80); PLATELET COUNT 269 10x3/uL (130-400); RBC 3.96 10x6/uL (4.00-5.40); RDW 23.3 % (11.5-14.5)
[2017-01-30 10:45] LABS: ALBUMIN 2.7 g/dL (3.4-5.0); ANION GAP 8.9 mmol/L (8-16); BILIRUBIN - TOTAL 0.4 mg/dL (0.2-1.3); CALCIUM 8.6 mg/dL (8.5-10.1); CARBON DIOXIDE 31.4 mmol/L (21.0-32.0); CREATININE - SERUM 1.1 mg/dL (0.6-1.3); POTASSIUM - SERUM 4.3 mmol/L (3.5-5.1); PROTEIN - SERUM 6.9 g/dL (6.4-8.2)
[2017-01-30] MEDS ORDERED: PLAVIX75 MG PO (14:08)
--- NOTE | 2017-01-30 14:10 | NUR ---
PT ARRIVED BY STRETCHER TO ROOM CV6. PT ABLE TO SCOOT SELF OVER TO BED WITHOUT ASSITANCE. PLACED ON ICU MONITORS. VSS AT THIS TIME. PT DENIES PAIN TO RIGHT GROIN "UNLESS I'M WALKING". BRUISING NOTED TO RIGHT GROIN DOWN TO MID THIGH. SMALL HARDENED AREA APPROX 6CM X 5CM NOTED UPON PALPATION TO RIGHT GROIN ANGIOSEAL SITE. PT HAS PAIN UPON TOUCH. DR. EASLEY AT BEDSIDE TO ASSESS GROIN. PALPABLE PULSES NOTED TO BILATERAL PEDAL PULSES.
--- NOTE | 2017-01-30 14:30 | NUR ---
PT AMBULATED TO RESTROOM. VOIDED WITHOUT DIFFICULTY. SHORTNESS OF BREATH NOTED WHEN BACK TO BED. O2 SAT 89% ON 2LNC, BUT WITH REST, INC TO 95%. PT REPORTS THAT SHE IS ON HOME O2 AT 2LNC. PT'S FAMILY AT BEDSIDE. UPDATED ON PT'S STATUS AND PLAN FOR SURGERY.
--- NOTE | 2017-01-30 14:45 | NUR ---
DR. COOPER AT BEDSIDE SPEAKING WITH PT AND PT'S FAMILY.
--- NOTE | 2017-01-30 14:50 | NUR ---
DR. EASLEY AT BEDSIDE SPEAKING WITH PT'S FAMILY. PT TAKEN TO OR BY BED WITH OR TEAM. FAMILY PLACED IN CVICU WAITING ROOM.
--- NOTE | 2017-01-30 16:24 | NUR ---
PT BACK FROM OR BY BED. SWITCHED OVER TO ICU MONITORS. PT C/O "I CAN'T BREATHE". HR 130 A-FIB (SHE REPORTS A HX OF IRREGULAR HEART RHYTHM). O2 SAT 96% ON 4LNC. AT BEDSIDE AND ENCOURAGED HER TO TAKE SLOW DEEP BREATHS. RESP RATE 36. PT'S HOB AT 45 DEGREES.
--- NOTE | 2017-01-30 19:40 | NUR ---
REPORT REC'D AND CARE ASSUMED, REC'D PT AWAKE, ALERT, ORIENTED ON O2 @ 2LITERS VIA NC, LEFT HAND PIV WITH PLASMALYTE @ 30CC/HR AND ZINACEF @ 11.4CC/HR, RIGHT GROIN DRSG CDI NO BLEEDING OR HEMATOMA NOTED, BRUISING NOTED TO RIGHT GROIN AND THIGH EXTENDING ALMOST TO KNEE, SHIELDS PATENT DRAINING CLEAR YELLOW URINE, BILAT SCD'S INTACT, PPP, SR UP X 2, BED IN LOW POSITION, PT DENIES PAIN OR NEEDS, CALL LIGHT IN REACH.
--- NOTE | 2017-01-30 19:55 | NUR ---
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
--- NOTE | 2017-01-30 20:20 | NUR ---
FRUIT PLATE PROVIDED TO PT AND ASSISTANCE GIVEN WITH OPENING CONTAINERS, ICE WATER PROVIDED ON REQUEST, PT DENIES FURTHER NEEDS.
--- NOTE | 2017-01-30 21:00 | NUR ---
ETCHER ENAMELING AND FAMILY AT VISITING WITH PT.
--- NOTE | 2017-01-30 23:10 | NUR ---
REASSESSMENT COMPLETED, PT RESTING QUIETLY IN BED, VSS, WILL CONT TO MONITOR FOR CHANGES.
[2017-01-31] VITALS (18 sets, daily range): BP systolic 107–140; BP diastolic 53–95; Ht 152.4 cm; Wt 53.5 kg
--- NOTE | 2017-01-31 01:00 | NUR ---
PT RESTLESS IN BED, PT ANXIOUS ABOUT LINES AND SCDS, STATES " I GOING TO GO CRAZY IF I LAY DOWN ANY LONGER", PT REPOSITIONED UP IN BED FOR COMFORT, EXCESS BLANKETS REMOVED, SCDS REMOVED FOR A BREAK, PT ASSISTED WITH TV REMOTE, WILL MONITOR FOR CHANGES.
--- NOTE | 2017-01-31 01:13 | NUR ---
PT COMPLAINS OF RIGHT GROIN PAIN, ASSISTED PT TO REPOSITION FOR COMFORT, HYDROCODONE PROVIDED FOR PAIN RATING "4" ON 0-10 PAIN SCALE, CALL LIGHT IN REACH.
--- NOTE | 2017-01-31 02:30 | NUR ---
PT DOZING AT INTERVALS, VSS, WILL CONT TO MONITOR FOR CHANGES.
--- NOTE | 2017-01-31 04:30 | NUR ---
RADIOLOGY @ BS FOR AM CXR
--- NOTE | 2017-01-31 05:45 | NUR ---
ALYSON ROSEN PER PROTOCOL, PT REPOSITIONED UP IN BED FOR COMFORT, DENIES PAIN OR OTHER NEEDS.
--- NOTE | 2017-01-31 06:20 | NUR ---
NO VISITORS IN AT THIS TIME, AM FUROSEMIDE GIVEN ORDERED, PT COMPLAINS OF BEING COLD, WARM BLANKET PROVIDED, VSS, PT DENIES FURTHER NEEDS.
[2017-01-31 06:30] LABS: HEMATOCRIT 32.6 % (36.0-48.0); HEMOGLOBIN 9.9 g/dL (12-16); MCH 24.8 pg (26.0-34.0); MCHC 30.4 g/dL (31.0-37.0); MCV 81.5 fL (80.0-100.0); MEAN PLATELET VOLUME 8.2 fL (7.4-10.4); RDW 23.5 % (11.5-14.5)
[2017-01-31 06:33] LABS: WBC 11.7 10x3/uL (4.8-10.8)
[2017-01-31 06:46] LABS: ANION GAP 10.8 mmol/L (8-16); CARBON DIOXIDE 30.9 mmol/L (21.0-32.0); CREATININE - SERUM 1.2 mg/dL (0.6-1.3); POTASSIUM - SERUM 3.7 mmol/L (3.5-5.1)
--- NOTE | 2017-01-31 07:07 | NUR ---
PT REPORT REC'D, PT CARE ASSUMED. PT AAOX4 SITTING UP IN CHAIR. PT C/O PAIN TO RIGHT GROIN RATED "8/10", REPOSITIONED PT, PAIN MEDS TO BE GIVEN. RIGHT GROIN DRESSING CDI, BRUISING NOTED. LEFT WRIST PIV WITH FLUIDS INFUSING, SEE FLOW SHEET. PT REFUSING SCD'S, "I WORE THOSE THINGS LAST NIGHT, I DON'T WANT TO PUT THEM ON RIGHT NOW." INFORMED PT THE USE FOR THEM, "WE CAN PUT THEM BACK ON IN A LITTLE BIT." SHIFT ASSESSMENT COMPLETED, SEE FLOW SHEET. ROOM FREE OF CLUTTER, CALL LIGHT IN REACH, BED ALARM ACTIVE, WILL CONTINUE TO MONITOR PT.
--- NOTE | 2017-01-31 08:20 | NUR ---
DR. EASLEY AT THE BEDSIDE, ALL QUESTIONS ANSWERED, VSS, WILL CONTINUE TO MONITOR PT.
--- NOTE | 2017-01-31 08:50 | NUR ---
PHYSICAL THERAPY IN WITH PT, TRANSFERRED PT FROM BED TO CHAIR, PT TOLERATED WELL, WILL CONTINUE TO MONITOR PT.
--- NOTE | 2017-01-31 09:00 | NUR ---
PT FAMILY AT THE BEDSIDE, ALL QUESTIONS ANSWERED, VSS, WILL CONTINUE TO MONITOR PT.
--- NOTE | 2017-01-31 10:43 | NUR ---
* Is the patient Alert and Oriented? Yes 0 * How many steps to enter\exit or inside your home? 0 0 * PCP Dr. Verduzco 0 * Pharmacy [facility] 0 * Preadmission Environment Home with Family 0 * ADLs Independent 0 * Equipment Nebulizer Oxygen 0 * List name and contact numbers for known caregivers / representatives who currently or will assist patient after discharge: Spouse - Nadeen [phone] Daughter - Pari Roberson [phone] 0 * Additional services required to return to the preadmission environment? No 0 * Can the patient safely return to the preadmission environment? Yes 0 * Has this patient been hospitalized within the prior 30 days at any hospital? No 0 Patient Name: HEBER BISHOP Admission Status: Elective Accout number: [id number] Admission Date: 01-30-2017 : 1935 Admission Diagnosis: Attending: LUIS F RIVAS Current LOS: 1 Anticipated DC Date: 02-03-2017 Planned Disposition: Home Primary Insurance: [employer] PPO MCR ADVANT Discharge Planning Comments: CM met with patient & daughter to assess dc plans/needs. Patient states she lives at home with her . She reports she is independent with ADL's & IADL's. She does not use any assistive devices for mobility. She wears home O2 @ 2L & has a nebulizer. At dc, she plans to return home with her . She is agreeable to home health referral if needed. CM will follow & assist as needed. Boilermaking Supervisor: Gypsy Shahid
--- NOTE | 2017-01-31 11:00 | NUR ---
PT SITTING UP IN CHAIR, NO C/O PAIN, VSS. REASSESSMENT COMPLETED, SEE FLOW SHEET.
--- NOTE | 2017-01-31 12:18 | NUR ---
PT FAMILY AT THE BEDSIDE, ALL QUESTIONS ANSWERED, VSS, WILL CONTINUE TO MONITOR PT.
--- NOTE | 2017-01-31 12:38 | NUR ---
PT FAMILY AT THE BEDSIDE, ALL QUESTIONS ANSWERED, VSS, WILL CONTINUE TO MONITOR PT.
--- NOTE | 2017-01-31 15:00 | NUR ---
TRANSFERRED PT FROM CHAIR TO TOILET AND BACK, PT TOLERATED WELL, VSS, REASSESSMENT COMPLETED, SEE FLOW SHEET. ROOM FREE OF CLUTTER, CALL LIGHT IN REACH, WILL CONTINUE TO MONITOR PT.
--- NOTE | 2017-01-31 18:14 | NUR ---
PT ZINACEF FINISHED INFUSING, FLUSHED IV WITH 10CC NS. DC'ED LEFT WRIST PIV, TIP INTACT. PRESSURE APPLIED, BAND AID APPLIED. WHEELED PT OUT VIA WHEELCHAIR TO PTS DAUGHTER AND SON IN LAWS PERSONAL VEHICLE.
== END 2017-01-31 18:16 | disposition home or self-care (01) | DRG 254 ==
LOC: D.ER 09:29 → D.M2 12:40 → D.CVICU 12:40
PROVIDERS: Internal Medicine Cardiovascular Disease; Physician Assistant; ADMIT Internal Medicine Interventional Cardiology
PROC: 04QK0ZZ Repair Right Femoral Artery, Open Approach (ICD-10-PCS; principal; 2017-01-30 15:09)
DX: I72.4 Aneurysm of artery of lower extremity (principal); I73.9 Peripheral vascular disease, unspecified; I25.10 Atherosclerotic heart disease of native coronary artery without angina pectoris; Z95.5 Presence of coronary angioplasty implant and graft; I11.0 Hypertensive heart disease with heart failure; I50.9 Heart failure, unspecified; E78.5 Hyperlipidemia, unspecified; D64.9 Anemia, unspecified; J44.9 Chronic obstructive pulmonary disease, unspecified; I48.91 Unspecified atrial fibrillation

== ENCOUNTER → 2017-07-31 13:09 | Outpatient (CLI) | payer MEDICARE ==
[2017-01-31 10:04] VITALS: BMI 23.0
[~2017-07-31 13:09] MED LIST changes: +AMBIEN10 MG PO; +BENZONATATE200 MG PO; +BETAPACE 80 MG80 MG PO; +BREO ELLIPTA 21 EACH; +FLUTICASONE PRO16 GM NASAL; +HYDROCODONE-APA1 TAB PO; +LEVAQUIN500 MG PO; +OMNICEF300 MG PO; +PREDNISONE10 MG PO; +PULMICORT0.5 MG/21 INH; +SINGULAIR10 MG PO; +STERAPRED DS 1010 MG PO; +ZITHROMAX250 MG PO
== END | disposition home or self-care (01) ==
LOC: D.RT 13:09
DX: J44.9 Chronic obstructive pulmonary disease, unspecified (principal)

== ENCOUNTER 2017-08-06 15:21 | Emergency (ER) | payer MEDICARE ==
[2017-01-31 10:04] VITALS: BMI 23.0
[~2017-08-06 15:21] MED LIST changes: -AMBIEN10 MG PO; -BENZONATATE200 MG PO; -BETAPACE 80 MG80 MG PO; -BREO ELLIPTA 21 EACH; -FLUTICASONE PRO16 GM NASAL; -HYDROCODONE-APA1 TAB PO; -LEVAQUIN500 MG PO; -OMNICEF300 MG PO; -PREDNISONE10 MG PO; -PULMICORT0.5 MG/21 INH; -SINGULAIR10 MG PO; -STERAPRED DS 1010 MG PO; -ZITHROMAX250 MG PO
[2017-08-06 17:24] LABS: BASOPHILS 0.3 % (0-2); EOSINOPHILS 0.1 % (0-7); HEMATOCRIT 30.5 % (36.0-48.0); HEMOGLOBIN 8.8 g/dL (12-16); IMMATURE GRANULOCYTES 0.2 % (0-5); LYMPHOCYTES 8.4 % (15-50); MCH 23.3 pg (26.0-34.0); MCHC 28.9 g/dL (31.0-37.0); MCV 80.7 fL (80.0-100.0); MEAN PLATELET VOLUME 8.3 fL (7.4-10.4); MONOCYTES 1.1 % (2-11); NEUTROPHILS 89.9 % (40-80); RBC 3.78 10x6/uL (4.00-5.40); RDW 16.4 % (11.5-14.5); WBC 10.1 10x3/uL (4.8-10.8)
[2017-08-06 17:25] LABS: PLATELET COUNT 376 10x3/uL (130-400)
[2017-08-06 17:41] LABS: ANION GAP 9.4 mmol/L (8-16); BILIRUBIN - TOTAL 0.21 mg/dL (0.2-1.3); CARBON DIOXIDE 28.6 mmol/L (21.0-32.0); CREATININE - SERUM 1.1 mg/dL (0.6-1.3); PROTEIN - SERUM 7.6 g/dL (6.4-8.2)
== END 2017-08-06 19:32 | disposition home or self-care (01) ==
LOC: D.ER 15:21
PROVIDERS: Emergency Medicine
DX: J44.1 Chronic obstructive pulmonary disease with (acute) exacerbation (principal); I50.9 Heart failure, unspecified

== ENCOUNTER 2017-08-13 10:01 | Inpatient (IN) | payer MEDICARE ==
[~2017-08-13] VITALS: Ht 152.4 cm; Wt 49.9 kg
--- NOTE | ~2017-08-13 | EC ---
PATIENT:HEBER BISHOP DATE OF SERVICE: 08/13/17 SEX: F MEDICAL RECORD: [id number] DATE OF : [birth year] LOCATION:D.MS [facility] AGE OF PATIENT: 81 ADMISSION DATE: 08/13/17 REFERRING PHYSICIAN: INTERPRETING PHYSICIAN: VIC JOHNSON MD ECHOCARDIOGRAM REPORT ECHO CHARGES 4 ECHO COMPLETE DATE: CLINICAL DIAGNOSIS: SOB ECHOCARDIOGRAPHIC MEASUREMENTS (adult normal given) AC root (d.<3.7cm) 3.3 cm LV Septum d (<1.2 cm> 1.5 cm Valve Excursion 1.9 cm LV Septum (systole) 2.2 cm Left Atria (s.<4.0cm> 4.1 cm LVPW d(<1.2cm) 1.5 cm RV (d.<2.3cm) 2.1 cm LVPW (sytole) 2.1 cm LV diastole(<5.6CM) 3.8 cm MV E-F(>70mm/sec) cm LV systole 1.3 cm LVOT Diameter 2.0 cm MV exc.(>10mm) cm Est.ejection fraction (50-75%) % DOPPLER: LVIT cm/sec A 108 cm/sec E 74.0 cm/sec LA cm/sec RVSP 59.3 mmHg LVOT 137 cm/sec AOP1/2T m/s Asc. Ao 17 cm/sec RVOT 62.0 cm/sec RA cm/sec PA 112 cm/sec AV Gradient Peak 12.4 mmHg AV Mean 6.1 mmHg AV Area 2.3 cm MV Gradient Peak 7.2 mmHg MV Mean 1.7 mmHg MV Area cm COMMENTS: Busser: Autumn SMITHOE Nut Threader: 1 Dr. Johnson TAPE# PACS Pericardial Effusion N DATE OF SERVICE: 08/14/2017 PROCEDURE: Echocardiogram. FINDINGS: 1. Left ventricular chamber size is within normal limits. Left ventricular systolic function is normal. Overall ejection fraction estimated at 55% to 60%. 2. The left atrium is mildly dilated at 4.1 cm. Right atrium and right ventricular chamber size is within normal limits. 3. Valvular structures have normal structure and motion. ECHOCARDIOGRAM REPORT [id number] HEBER BISHOP 4. Doppler interrogation reveals trace mitral regurgitation, mild tricuspid regurgitation, no other valvular insufficiency or stenosis; however, pulmonary systolic pressure is elevated estimated 60 mmHg. 5. No evidence of pericardial effusion or left ventricular thrombus. TRANSINT:[id number] Voice Confirmation ID: [id number] DOCUMENT ID: [id number] VIC JOHNSON MD at 1140 CC: [id number] DICTATION DATE: 08/14/17 1254 RECORDS SUPERVISOR: 08/14/17 1301 DIS IN 08/16/17 [place] [id number] [place] [id number]
[2017-08-13 10:44] LABS: BASOPHILS 0.1 % (0-2); EOSINOPHILS 0.5 % (0-7); HEMATOCRIT 29.7 % (36.0-48.0); HEMOGLOBIN 8.6 g/dL (12-16); IMMATURE GRANULOCYTES 0.2 % (0-5); LYMPHOCYTES 5.9 % (15-50); MCH 22.8 pg (26.0-34.0); MCV 78.6 fL (80.0-100.0); MEAN PLATELET VOLUME 8.1 fL (7.4-10.4); MONOCYTES 7.6 % (2-11); NEUTROPHILS 85.7 % (40-80); PLATELET COUNT 378 10x3/uL (130-400); RBC 3.78 10x6/uL (4.00-5.40); RDW 16.3 % (11.5-14.5); WBC 17.3 10x3/uL (4.8-10.8)
[2017-08-13 10:53] LABS: APTT 34.9 SECONDS (22.8-39.4); INR 1.34 (0.85-1.17); PROTIME 16.1 SECONDS (11.6-15.0)
[2017-08-13 10:58] LABS: ALBUMIN 2.6 g/dL (3.4-5.0); ALKALINE PHOSPHATASE 72 U/L (46-116); ALT (SGPT) 13 U/L (10-68); CALC OSMOLALITY 283 mosm/kg (275-300); CALCIUM 8.7 mg/dL (8.5-10.1); CARBON DIOXIDE 31.7 mmol/L (21.0-32.0); CHLORIDE - SERUM 101 mmol/L (98-107); CREATININE - SERUM 1.1 mg/dL (0.6-1.3); GLUCOSE 116 mg/dL (74-106); POTASSIUM - SERUM 3.9 mmol/L (3.5-5.1); PROTEIN - SERUM 7.1 g/dL (6.4-8.2); SODIUM 139 mmol/L (136-145); UREA NITROGEN 26 mg/dL (7-18); eGFR NON AFRICAN AMERICAN 50 mL/min (90-120)
[2017-08-13 11:10] LABS: CHOL - HDL RATIO 1.8 ratio (2.3-4.1); CHOLESTEROL, TOTAL 190 mg/dL (0-200); CKMB 1.1 U/L (0.0-3.6); CREATINE KINASE 20 UL (21-215); HDL CHOLESTEROL 107 mg/dL (32-96); LDL CHOLESTEROL 66 mg/dL (0-100); LDL-HDL RATIO 0.6 ratio (1.5-3.5); LIPASE 177 U/L (73-393); PRO BNP 3724 pg/mL (0-450); TRIGLYCERIDE 86 mg/dL (30-200)
[2017-08-13 11:13] LABS: TROPONIN-I < 0.017 ng/mL (0.000-0.060)
[2017-08-13 17:08] LABS: % SATURATION 2 % (15-55); IRON 10 ug/dl (35-150); TOTAL IRON BIND CAPACITY 358 ug/dl (260-445); UNSAT IRON BIND CAPACITY 348 ug/dl (150-375)
[2017-08-13 20:00] VITALS: BP 142/72
[2017-08-14] VITALS (7 sets, daily range): BP systolic 118–142; BP diastolic 51–88; Ht 152.4 cm; Wt 49.9 kg
[2017-08-14] MEDS ORDERED: BETAPACE 80 MG80 MG PO (02:27)
[2017-08-14] MEDS ORDERED: HYDROCODONE-APA1 TAB PO (02:28)
[2017-08-14] MEDS ORDERED: PULMICORT0.5 MG/21 INH (02:29)
[2017-08-14] MEDS ORDERED: SINGULAIR10 MG PO (02:30)
[2017-08-14] MEDS ORDERED: BREO ELLIPTA 21 EACH (02:30)
[2017-08-14] MEDS ORDERED: AMBIEN10 MG PO (02:31)
[2017-08-14 06:14] LABS: BASOPHILS 0.1 % (0-2); EOSINOPHILS 0 % (0-7); HEMATOCRIT 29.6 % (36.0-48.0); HEMOGLOBIN 8.5 g/dL (12-16); IMMATURE GRANULOCYTES 0.4 % (0-5); LYMPHOCYTES 6.9 % (15-50); MCH 22.3 pg (26.0-34.0); MCHC 28.7 g/dL (31.0-37.0); MCV 77.7 fL (80.0-100.0); MONOCYTES 0.9 % (2-11); NEUTROPHILS 91.7 % (40-80); PLATELET COUNT 353 10x3/uL (130-400); RBC 3.81 10x6/uL (4.00-5.40); RDW 16.4 % (11.5-14.5)
[2017-08-14 06:18] LABS: WBC 12.7 10x3/uL (4.8-10.8)
[2017-08-14 06:31] LABS: ANION GAP 9.7 mmol/L (8-16); CALCIUM 8.8 mg/dL (8.5-10.1); POTASSIUM - SERUM 4.7 mmol/L (3.5-5.1)
[2017-08-15 04:00] VITALS: BP 135/65
[2017-08-15 05:59] LABS: BASOPHILS 0 % (0-2); EOSINOPHILS 0 % (0-7); HEMATOCRIT 28.5 % (36.0-48.0); HEMOGLOBIN 8.2 g/dL (12-16); IMMATURE GRANULOCYTES 0.4 % (0-5); LYMPHOCYTES 5.8 % (15-50); MCH 22.3 pg (26.0-34.0); MCHC 28.8 g/dL (31.0-37.0); MCV 77.7 fL (80.0-100.0); MONOCYTES 5.3 % (2-11); NEUTROPHILS 88.5 % (40-80); PLATELET COUNT 388 10x3/uL (130-400); RBC 3.67 10x6/uL (4.00-5.40); RDW 16.3 % (11.5-14.5)
[2017-08-15 06:26] LABS: ANION GAP 8.5 mmol/L (8-16); CALCIUM 8.5 mg/dL (8.5-10.1); CARBON DIOXIDE 31.1 mmol/L (21.0-32.0); CREATININE - SERUM 1.3 mg/dL (0.6-1.3); POTASSIUM - SERUM 4.6 mmol/L (3.5-5.1)
[2017-08-15 08:55] VITALS: BP 175/70
[2017-08-15 09:19] LABS: FOLATE (FOLIC ACID) - SERUM 16.7 ng/mL (>3.0)
[2017-08-15 13:05] VITALS: BP 125/68
[2017-08-15 16:00] VITALS: BP 100/67
[2017-08-15 20:00] VITALS: BP 149/83
[2017-08-16] VITALS: BP 147/75
[2017-08-16 04:00] VITALS: BP 135/71
[2017-08-16 05:12] LABS: BASOPHILS 0.1 % (0-2); EOSINOPHILS 0.2 % (0-7); HEMATOCRIT 30.1 % (36.0-48.0); HEMOGLOBIN 8.5 g/dL (12-16); IMMATURE GRANULOCYTES 0.5 % (0-5); LYMPHOCYTES 14.8 % (15-50); MCH 22.3 pg (26.0-34.0); MCHC 28.2 g/dL (31.0-37.0); MCV 78.8 fL (80.0-100.0); MEAN PLATELET VOLUME 7.9 fL (7.4-10.4); MONOCYTES 11.1 % (2-11); NEUTROPHILS 73.3 % (40-80); PLATELET COUNT 384 10x3/uL (130-400); RBC 3.82 10x6/uL (4.00-5.40); RDW 16.6 % (11.5-14.5); WBC 16.9 10x3/uL (4.8-10.8)
[2017-08-16 05:32] LABS: CALCIUM 8.2 mg/dL (8.5-10.1); CARBON DIOXIDE 31.3 mmol/L (21.0-32.0); CREATININE - SERUM 1.5 mg/dL (0.6-1.3); POTASSIUM - SERUM 4.3 mmol/L (3.5-5.1)
[2017-08-16 08:49] VITALS: BP 120/64
[2017-08-16 12:56] VITALS: BP 133/74
[2017-08-16 16:23] VITALS: BP 101/51
[2017-08-16] MEDS ORDERED: FLUTICASONE PRO16 GM NASAL (16:28)
[2017-08-16] MEDS ORDERED: ZITHROMAX250 MG PO (16:30)
[2017-08-16] MEDS ORDERED: OMNICEF300 MG PO (16:30)
[2017-08-16] MEDS ORDERED: PREDNISONE10 MG PO (16:30)
[2017-08-16] MEDS ORDERED: BENZONATATE200 MG PO (16:31)
== END 2017-08-16 18:26 | disposition home or self-care (01) | DRG 193 ==
LOC: D.ER 10:01 → D.MS 11:56 → D.EDHOLD 11:56 → D.MS 16:38
PROVIDERS: Family Medicine; Internal Medicine Nephrology
DX: J18.9 Pneumonia, unspecified organism (principal); J96.21 Acute and chronic respiratory failure with hypoxia; I50.31 Acute diastolic (congestive) heart failure; I13.0 Hypertensive heart and chronic kidney disease with heart failure and stage 1 through stage 4 chronic kidney disease, or unspecified chronic kidney disease; M35.1 Other overlap syndromes; J44.0 Chronic obstructive pulmonary disease with (acute) lower respiratory infection; J44.1 Chronic obstructive pulmonary disease with (acute) exacerbation; I48.0 Paroxysmal atrial fibrillation; D53.9 Nutritional anemia, unspecified; Z99.81 Dependence on supplemental oxygen; E78.5 Hyperlipidemia, unspecified; N18.2 Chronic kidney disease, stage 2 (mild); K21.9 Gastro-esophageal reflux disease without esophagitis; K44.9 Diaphragmatic hernia without obstruction or gangrene; K29.60 Other gastritis without bleeding; M41.9 Scoliosis, unspecified

== ENCOUNTER → 2017-10-09 14:24 | Outpatient (CLI) | payer MEDICARE ==
[2017-08-14 12:42] VITALS: BMI 21.4
[~2017-10-09 14:24] MED LIST changes: +AMBIEN10 MG PO; +BENZONATATE200 MG PO; +BETAPACE 80 MG80 MG PO; +BREO ELLIPTA 21 EACH; +FLUTICASONE PRO16 GM NASAL; +HYDROCODONE-APA1 TAB PO; +LEVAQUIN500 MG PO; +OMNICEF300 MG PO; +PREDNISONE10 MG PO; +PULMICORT0.5 MG/21 INH; +SINGULAIR10 MG PO; +STERAPRED DS 1010 MG PO; +ZITHROMAX250 MG PO
== END | disposition home or self-care (01) ==
LOC: D.CT 14:24
DX: J18.9 Pneumonia, unspecified organism (principal)

== ENCOUNTER 2017-10-15 10:30 | Inpatient (IN) | payer MEDICARE ==
[~2017-10-15] VITALS: Ht 152.4 cm; Wt 49.0 kg
--- NOTE | ~2017-10-15 | EC ---
PATIENT:HEBER BSIHOP DATE OF SERVICE: 10/15/17 SEX: F MEDICAL RECORD: [id number] DATE OF : [birth year] LOCATION:D.M2 D.212 AGE OF PATIENT: 81 ADMISSION DATE: 10/15/17 REFERRING PHYSICIAN: INTERPRETING PHYSICIAN: VIC RIVAS MD ECHOCARDIOGRAM REPORT ECHO CHARGES 4 ECHO COMPLETE Date: 10/17 CLINICAL DIAGNOSIS: CHF ECHOCARDIOGRAPHIC MEASUREMENTS (adult normal given) AC root (d.<3.7cm) 3.3 cm LV Septum d (<1.2 cm> 1.8 cm Valve Excursion 1.9 cm LV Septum (systole) 1.9 cm Left Atria (s.<4.0cm> 4.0 cm LVPW d(<1.2cm) 1.7 cm RV (d.<2.3cm) 3.9 cm LVPW (sytole) 1.8 cm LV diastole(<5.6CM) 3.5 cm MV E-F(>70mm/sec) cm LV systole 1.9 cm LVOT Diameter 1.9 cm MV exc.(>10mm) 1.9 cm Est.ejection fraction (50-75%) % DOPPLER: LVIT cm/sec A 56.0 cm/sec E 46.0 cm/sec LA cm/sec RVSP 17 mmHg LVOT 89 cm/sec AOP1/2T m/s Asc. Ao 135 cm/sec RVOT 101 cm/sec RA cm/sec PA 109 cm/sec AV Gradient Peak 7.32 mmHg AV Mean 4.07 mmHg AV Area 2.2 cm MV Gradient Peak 2.64 mmHg MV Mean 1.24 mmHg MV Area cm COMMENTS: Ticket Dispenser Changer: Reyna JOHNSON Senior Accounting Associate: 2 Dr. Boswell TAPE# PACS Pericardial Effusion N DATE OF SERVICE: 10/17/2017 PROCEDURE: Echocardiogram. FINDINGS: 1. Left ventricular chamber size is within normal limits. 2. Left ventricular systolic function is normal. Overall ejection fraction estimated at 60%. 3. Left atrium, right atrium, right ventricle chamber size is within normal limits. ECHOCARDIOGRAM REPORT [id number] HEBER BISHOP 4. Valvular structures have normal structure and motion. 5. Doppler interrogation reveals no significant valvular insufficiency or stenosis and pulmonary systolic pressure is normal estimated 17 mmHg. 6. No evidence of pericardial effusion or left ventricular thrombus. TRANSINT:[id number] Voice Confirmation ID: [id number] DOCUMENT ID: [id number] VIC RIVAS MD at 1218 CC: [id number] DICTATION DATE: 10/17/17 1556 BROOCH AND BRACELET MAKER: 10/17/17 1612 ADM IN [facility] [address] [place] [address]
--- NOTE | ~2017-10-15 | CN ---
PATIENT NAME:HEBER ORELLANA MEDICAL RECORD: [id number] : 31 LOCATION:D. D.2129 ADMIT DATE: 10/15/17 ACCOUNT: [id number] CONSULTING PHYSICIAN: NEIL GARCIA MD REFERRING PHYSICIAN: RODRIGO REID MD DATE OF CONSULTATION: 10/15/2017 CONSULT REQUESTING PHYSICIAN: Rodrigo Reid MD REASON FOR CONSULTATION: Acute exacerbation of COPD, ibjce-xq-arudpep hypoxic respiratory failure, bibasilar pneumonia. HISTORY OF PRESENT ILLNESS: Ms. Orellana is an 81-year-old female. She is not feeling well for the last few weeks; but for the last 2-3 days, she has worsening orthopnea and PND. She is coughing with yellow color sputum production. There is no fever and chill. No night sweats. REVIEW OF THE SYSTEMS: As in history of present illness. PAST MEDICAL HISTORY: 1. COPD. 2. Hypertension. 3. Congestive heart failure. 4. Coronary artery disease. 5. History of atrial fibrillation. PAST SURGICAL HISTORY: She had a colon resection. ALLERGIES: There are no known drug allergies. MEDICATIONS: [employer] was reviewed. PERSONAL AND SOCIAL HISTORY: The patient is an ex-smoker. She is nondrinker. FAMILY HISTORY: Noncontributory. PHYSICAL EXAMINATION: GENERAL: Now, the patient is lying comfortably in bed. She is not in acute distress. VITAL SIGNS: The SpO2 is 94% on nasal cannula oxygen. HEENT: Conjunctivae are pink. Sclerae not icteric. NECK: Neck is supple. No JVD. CHEST: The chest excursion is minimal with bilateral crackles and wheeze on forceful expiration. HEART: Rhythm regular. Normal sound. No murmur. ABDOMEN: Abdomen is soft. Bowel sounds present. No hepatosplenomegaly. RECTAL: Deferred. EXTREMITIES: No cyanosis. No clubbing. No pedal edema. SKIN: The skin is warm. Normal turgor. CENTRAL NERVOUS SYSTEM: The patient is awake and alert. There is no obvious cranial nerve abnormality. The gait was not tested. IMPRESSION: 1. Acute exacerbation of COPD. 2. Acute exacerbation of bronchiectasis. CONSULT REPORT [id number] HEBER ORELLANA 3. Rjkev-lb-idemrmp hypoxic respiratory failure. 4. Bibasilar pneumonia, most likely community-acquired pneumonia. 5. Congestive heart failure with elevated proBNP of 10,000, most likely systolic dysfunction. 6. Gastroesophageal reflux disease. RECOMMENDATION: 1. Continue supplemental oxygen, Lasix IV, albuterol/ipratropium nebulizer, Brovana and budesonide nebulizer. Adjust the dose of methylprednisolone IV. Continue Levaquin IV. Start on Rocephin 1 gram IV q. 24. 2. Followup labs and chest radiograph. 3. Mucinex DM. Dr. Reid, thank you for involving me in the care of Ms. Orellana. TRANSINT:[id number] Voice Confirmation ID: [id number] DOCUMENT ID: [id number] NEIL GARCIA MD CC: RODRIGO REID [id number] DICTATION DATE: 10/15/17 1513 SHIPPER RECEIVER: 10/15/17 1606 ADM IN [facility] [address] [id number]
[~2017-10-15 10:30] MED LIST changes: -LEVAQUIN500 MG PO; -STERAPRED DS 1010 MG PO
[2017-10-15 11:00] LABS: BASOPHILS 0.3 % (0-2); EOSINOPHILS 1.2 % (0-7); HEMATOCRIT 32.3 % (36.0-48.0); HEMOGLOBIN 9.3 g/dL (12-16); IMMATURE GRANULOCYTES 0.2 % (0-5); LYMPHOCYTES 10.9 % (15-50); MCHC 28.8 g/dL (31.0-37.0); MCV 76.5 fL (80.0-100.0); MEAN PLATELET VOLUME 8.2 fL (7.4-10.4); MONOCYTES 11.3 % (2-11); NEUTROPHILS 76.1 % (40-80); RBC 4.22 10x6/uL (4.00-5.40); RDW 18.3 % (11.5-14.5); WBC 13.2 10x3/uL (4.8-10.8)
[2017-10-15 11:01] LABS: PLATELET COUNT 299 10x3/uL (130-400)
[2017-10-15 11:13] LABS: ALBUMIN 2.6 g/dL (3.4-5.0); ALKALINE PHOSPHATASE 90 U/L (46-116); ALT (SGPT) 15 U/L (10-68); BILIRUBIN - TOTAL 0.46 mg/dL (0.2-1.3); CALC OSMOLALITY 286 mosm/kg (275-300); CALCIUM 9.3 mg/dL (8.5-10.1); CARBON DIOXIDE 32.6 mmol/L (21.0-32.0); CHLORIDE - SERUM 99 mmol/L (98-107); CREATININE - SERUM 1.4 mg/dL (0.6-1.3); GLUCOSE 177 mg/dL (74-106); SODIUM 139 mmol/L (136-145); UREA NITROGEN 27 mg/dL (7-18); eGFR NON AFRICAN AMERICAN 38 mL/min (90-120)
[2017-10-15 11:22] LABS: PRO BNP 10084 pg/mL (0-450); TROPONIN-I < 0.017 ng/mL (0.000-0.060)
[2017-10-15 17:53] VITALS: BP 126/70; BMI 21.1
[2017-10-16 04:00] VITALS: BP 115/66
[2017-10-16 05:48] LABS: BASOPHILS 0 % (0-2); EOSINOPHILS 0 % (0-7); HEMATOCRIT 30.6 % (36.0-48.0); HEMOGLOBIN 8.8 g/dL (12-16); IMMATURE GRANULOCYTES 0.4 % (0-5); LYMPHOCYTES 9.2 % (15-50); MCH 21.6 pg (26.0-34.0); MCHC 28.8 g/dL (31.0-37.0); MEAN PLATELET VOLUME 8.5 fL (7.4-10.4); NEUTROPHILS 88.4 % (40-80); PLATELET COUNT 293 10x3/uL (130-400); RBC 4.08 10x6/uL (4.00-5.40); RDW 18.3 % (11.5-14.5); WBC 10.4 10x3/uL (4.8-10.8)
[2017-10-16 06:14] LABS: ALBUMIN 2.3 g/dL (3.4-5.0); ANION GAP 13.7 mmol/L (8-16); BILIRUBIN - TOTAL 0.2 mg/dL (0.2-1.3); CALCIUM 9.1 mg/dL (8.5-10.1); CARBON DIOXIDE 30.3 mmol/L (21.0-32.0); PROTEIN - SERUM 7.6 g/dL (6.4-8.2)
[2017-10-16 08:02] VITALS: BP 126/73
[2017-10-16 12:56] VITALS: BP 126/78
[2017-10-16 14:06] VITALS: Ht 152.4 cm; Wt 49.0 kg
[2017-10-16 15:08] VITALS: BP 121/72
[2017-10-16 20:00] VITALS: BP 128/68
[2017-10-17] VITALS: BP 129/70
[2017-10-17 04:00] VITALS: BP 127/62
[2017-10-17 04:43] LABS: BASOPHILS 0 % (0-2); EOSINOPHILS 0 % (0-7); HEMATOCRIT 30.7 % (36.0-48.0); HEMOGLOBIN 8.8 g/dL (12-16); IMMATURE GRANULOCYTES 0.5 % (0-5); LYMPHOCYTES 5.2 % (15-50); MCH 21.4 pg (26.0-34.0); MCHC 28.7 g/dL (31.0-37.0); MCV 74.7 fL (80.0-100.0); MEAN PLATELET VOLUME 8.2 fL (7.4-10.4); MONOCYTES 2.8 % (2-11); NEUTROPHILS 91.5 % (40-80); PLATELET COUNT 300 10x3/uL (130-400); RBC 4.11 10x6/uL (4.00-5.40); RDW 18.2 % (11.5-14.5)
[2017-10-17 04:56] LABS: WBC 17.8 10x3/uL (4.8-10.8)
[2017-10-17 05:07] LABS: ALBUMIN 2.2 g/dL (3.4-5.0); BILIRUBIN - TOTAL 0.16 mg/dL (0.2-1.3); CALCIUM 8.9 mg/dL (8.5-10.1); CARBON DIOXIDE 31.6 mmol/L (21.0-32.0); CREATININE - SERUM 1.9 mg/dL (0.6-1.3); POTASSIUM - SERUM 4.6 mmol/L (3.5-5.1); PROTEIN - SERUM 7.3 g/dL (6.4-8.2)
[2017-10-17 07:49] VITALS: BP 107/50
[2017-10-17 11:22] VITALS: BP 109/58
[2017-10-17 15:22] VITALS: BP 120/62
[2017-10-17 20:00] VITALS: BP 118/83
[2017-10-18 04:00] VITALS: BP 122/64
[2017-10-18 07:06] LABS: BASOPHILS 0 % (0-2); EOSINOPHILS 0 % (0-7); HEMATOCRIT 30.4 % (36.0-48.0); HEMOGLOBIN 8.8 g/dL (12-16); IMMATURE GRANULOCYTES 0.4 % (0-5); MCH 21.6 pg (26.0-34.0); MCHC 28.9 g/dL (31.0-37.0); MCV 74.5 fL (80.0-100.0); MEAN PLATELET VOLUME 8.2 fL (7.4-10.4); NEUTROPHILS 88.6 % (40-80); PLATELET COUNT 314 10x3/uL (130-400); RBC 4.08 10x6/uL (4.00-5.40); RDW 18.1 % (11.5-14.5); WBC 18.1 10x3/uL (4.8-10.8)
[2017-10-18 07:24] LABS: ALBUMIN 2.3 g/dL (3.4-5.0); ANION GAP 11.3 mmol/L (8-16); BILIRUBIN - TOTAL 0.18 mg/dL (0.2-1.3); CALCIUM 8.9 mg/dL (8.5-10.1); CARBON DIOXIDE 31.6 mmol/L (21.0-32.0); CREATININE - SERUM 1.7 mg/dL (0.6-1.3); POTASSIUM - SERUM 4.9 mmol/L (3.5-5.1)
[2017-10-18 07:59] VITALS: BP 126/63
[2017-10-18 11:35] VITALS: BP 101/60
[2017-10-18 15:33] VITALS: BP 125/72
[2017-10-19] VITALS: BP 139/70
[2017-10-19 04:00] VITALS: BP 104/73
[2017-10-19 05:58] LABS: BASOPHILS 0 % (0-2); EOSINOPHILS 0 % (0-7); HEMATOCRIT 30.4 % (36.0-48.0); HEMOGLOBIN 8.8 g/dL (12-16); IMMATURE GRANULOCYTES 0.4 % (0-5); LYMPHOCYTES 4.8 % (15-50); MCH 21.5 pg (26.0-34.0); MCHC 28.9 g/dL (31.0-37.0); MCV 74.3 fL (80.0-100.0); MEAN PLATELET VOLUME 8.1 fL (7.4-10.4); NEUTROPHILS 89.8 % (40-80); PLATELET COUNT 279 10x3/uL (130-400); RBC 4.09 10x6/uL (4.00-5.40); RDW 18.1 % (11.5-14.5); WBC 17.7 10x3/uL (4.8-10.8)
[2017-10-19 06:24] LABS: ALBUMIN 2.3 g/dL (3.4-5.0); ANION GAP 9.8 mmol/L (8-16); BILIRUBIN - TOTAL 0.1 mg/dL (0.2-1.3); CALCIUM 9.1 mg/dL (8.5-10.1); CARBON DIOXIDE 33.5 mmol/L (21.0-32.0); CREATININE - SERUM 1.5 mg/dL (0.6-1.3); POTASSIUM - SERUM 5.3 mmol/L (3.5-5.1); PROTEIN - SERUM 6.9 g/dL (6.4-8.2)
[2017-10-19 08:35] VITALS: BP 139/80
[2017-10-19] MEDS ORDERED: LEVAQUIN500 MG PO (11:36)
[2017-10-19] MEDS ORDERED: STERAPRED DS 1010 MG PO (11:42)
== END 2017-10-19 13:30 | disposition home or self-care (01) | DRG 291 ==
LOC: D.ER 10:30 → D.M2 13:14
PROVIDERS: Emergency Medicine; Family Medicine
DX: I13.0 Hypertensive heart and chronic kidney disease with heart failure and stage 1 through stage 4 chronic kidney disease, or unspecified chronic kidney disease (principal); I50.23 Acute on chronic systolic (congestive) heart failure; J18.9 Pneumonia, unspecified organism; J96.21 Acute and chronic respiratory failure with hypoxia; M35.1 Other overlap syndromes; J44.1 Chronic obstructive pulmonary disease with (acute) exacerbation; J44.0 Chronic obstructive pulmonary disease with (acute) lower respiratory infection; J98.11 Atelectasis; N18.2 Chronic kidney disease, stage 2 (mild); I25.10 Atherosclerotic heart disease of native coronary artery without angina pectoris; I48.2 Chronic atrial fibrillation; K21.9 Gastro-esophageal reflux disease without esophagitis; Z87.891 Personal history of nicotine dependence

== ENCOUNTER 2017-12-04 15:04 | Inpatient (IN) | payer MEDICARE ==
[~2017-12-04] VITALS: Ht 152.4 cm; Wt 55.5 kg
--- NOTE | ~2017-12-04 | MORECARE ---
CASE MANAGEMENT DISCHARGE SUMMARY PATIENT: HEBER BISHOP TOMEKA UNIT: [id number] ADM DATE: 12/04/17 AGE: 81 : 33 SEX: F ROOM/BED: D.2120 AUTHOR: CASE, SHOE SALESPERSON PHYSICIAN: REFERRING PHYSICIAN: FRED LAMB MD DATE OF SERVICE: 12/04/17 Discharge Plan Patient Name: HEBER BISHOP Facility: [facility]:[place] : 1935 Planned Disposition: Inpatient Rehab Anticipated Discharge Date: Discharge Date: Expected LOS: Initial Reviewer: [id number] Initial Review Date: 12/04/2017 Generated: 12/27/17 4:50 pm Comments DCP- Discharge Planning Updated by [id number]: Jessica Moon on 12/27/17 2:[address] Patient Name: HEBER BISHOP Encounter No: [id number] : 1935 Primary Insurance: [employer] CHOICE PPO MCR ADVANT Anticipated DC Date: Planned Disposition: SNF FACILITY External Planned Provider: [facility], MEDICARE REHAB BED DCP follow-up note: CM RECEIVED NOITICE OF DENIAL OF INPATIENT REHAB FROM [facility] INPATIENT REHAB, PROVIDED COPY TO PT AND DAUGHTER IN ROOM. PT AND DAUGHTER ARE CONSIDERING AN APPEAL AND REQUESTED REHAB REFERRAL BE FAXED TO [facility]. CM NOTIFIED WILLIAN PERRIN OF DENIAL AND WAS DIRECTED TO CHECK [facility] DR. POPE TO SEE IF HE IS WILLING TO DO PEER TO PEER ON THE INPATIENT REHAB DENIAL. [facility], , SPOKE TO MICHAEL WHO REPORTS BED AVAILABLE. CM FAXED REFERRAL TO [facility] AT [phone]. COPY OF DENIAL TO FILE. PT AND DAUGHTER REQUEST THE DOCTOR CONTACT [facility] TO APPEAL INPATIENT REHAB DECLINATION. CM WAITING ADMISSION DETERMINATION FROM [facility] WELL INSURANCE APPROVAL OR DENIAL FOR SNF REHAB. JESSICA MOON, CASE MANAGEMENT Appended by Jessica Moon on 12/26/2017 16:35 CDT: CM DISCUSSED PT AND FAMILY REQUEST FOR THE DOCTOR CONTACT [facility] TO APPEAL INPATIENT REHAB DECLINATION WITH DR. MANNING; DR. MANNING ADVISED HE IS IN AGREEMENT WITH REHAB AT SNF [facility]. CM WAITING ADMISSION DETERMINATION FROM [facility] AND REH[facility] WELL INSURANCE APPROVAL OR DENIAL FOR SNF REHAB. JESSICA MOON, CASE MANAGEMENT Appended by Jessica Moon on 12/27/2017 15:45 CDT: CM SPOKE TO PT IN ROOM, PT STILL IN AGREEMENT WITH DISCHARGE TO REHAB AT [facility] AND HAS WORN THE BIPAP AND AGREES TO WEAR A BIPAP OR TRILOGY AFTER DISCHARGE, PT REPORTS UNDERSTANDING THAT THE MACHINE IS MONITORED FOR COMPLIANCE WITH USE. CM FAXED NIPPV ORDER, SUPPORTING DOCUMENTS TO [facility], . CM CALLED AND NOTIFIED MICHAEL AT [facility] OF NEED OF NIPPV AT [phone]. MICHAEL REPORTS THEY MAY BE ABLE TO GET THE NIPPV BY TOMORROW, 12-28-17. CM WAITING ADMISSION DETERMINATION FROM [facility] WE[facility] INSURANCE APPROVAL OR DENIAL FOR SNF REHAB. CM ALSO WAITING ARRANGEMENT OF BIPAP OR TRILOGY BY [facility]. JESSICA MOON, CASE MANAGEMENT DCP- Discharge Planning Updated by [id number]: Jessica Moon on 12/25/17 4:[address] Patient Name: HEBER BISHOP Encounter No: [id number] : 1935 Primary Insurance: [employer] PPO MCR ADVANT Anticipated DC Date: Planned Disposition: Inpatient Rehab External Planned Provider: [facility] INPATIENT REHAB DCP follow-up note: CM SPOKE TO [place] OF [facility] INPATIENT REHAB WHO ADVISED PT'S INSURANCE DECLINED INPATIENT REHAB FOR PT. CM MET WITH PT AND DAUGHTER STEPHAN IN ROOM. BOTH WANT THE DOCTOR TO CALL AND APPEAL THE DECLINATION FOR INPATIENT REHAB. CM EXPLAINED THAT THE DOCTOR MAY OR MAY NOT PERFMORM THE APPEAL CALL AND EXPLAINED THAT ONCE THE FAXED DECLINATION WAS RECEIVED, PT AND FAMILY CAN EXLORE THEIR APPEAL RIGHTS WELL. CM PROVIDED AND DISCUSSED IMPORTANT MESSAGE FROM MEDICARE, SNF CHOICE PROVIDER LISTING WELL HOME HEALTH PROVIDER LISTING. PT AND DAUGHTER REPORT HOME IS NOT AN OPTION AT THIS TIME AND THEY MAY [facility]. PT AND DAUGHTER REQUEST THE DOCTOR CONTACT [facility] TO APPEAL INPATIENT REHAB DECLINATION. CM TO SEND REFERRAL TO [facility] AND REHAB SOON POSSIBLE 12-26-17. JESSICA MOON, CASE MANAGEMENT DCP- Discharge Planning Updated by [id number]: Jessica Moon on 12/22/17 5:[address] Patient Name: HEBER BISHOP Encounter No: [id number] : 1935 Primary Insurance: [employer] CHOICE PPO MCR ADVANT Anticipated DC Date: Planned Disposition: Inpatient Rehab External Planned Provider: [facility] INPATIENT REHAB DCP follow-up note: CM RECEIVED ORDER FOR INPATIENT REHAB PRESCREENING, MET WITH PT IN ROOM, DISCUSSED REHAB OPTIONS AND LOCATIONS. PT WOULD LIKE REHAB AT [facility] IF INSURANCE WILL PAY FOR IT AND IF NOT, SHE WILL TRY [facility] RE[facility]. PT REPORTS HAVING HER SMART VEST AT HOME. CM SPOKE TO [place] OF [facility] INPATIENT REHAB WHO REPORTS THEY WILL SUBMIT TO PT'S INSURANCE FOR AUTHORIZATION REQUEST FOR INPATIENT REHAB SERVICES. CM WAITING INSURANCE AUTHORIZATION OR DENIAL OF INPATIENT REHAB SERVICES AT [facility]. Jessica Moon, CASE MANAGEMENT DCP- Discharge Planning Updated by [id number]: Radhacatarino Tilley on 12/14/17 2:[address] GILL, FREDERICK BEDSIDE NURSE ASKED IF THE PATIENTS VEST WAS BEING SET UP. SHE STATED THAT DR CALDWELL WAS ON THE PHONE ENQUIRING. I EXPLAINED THAT THE PATIENT HAD REFUSED THE VEST AND SO THE PAPERWORK WAS NOT SENT IN. HE ASKED THROUGH GILL IF SHE REFUSED AGAIN TODAY. I EXPLAINED THAT I HAD NOT TALKED TO THE PATIENT TODAY. PER GILL, DR CALDWELL STATED SHE WORE THE VEST LAST NIGHT AND IS CONSENTING TO THE SMART VEST NOW. I WENT IN AND SPOKE WITH THE PATIENT AND HER SPOUSE AND THEY BOTH AGREED FOR THE SMART VEST NOW. THE QUESTIONED ME ABOUT THEIR BRONCH TOMORROW. I ANSWERED ALL QUESTIONS TO THE BEST OF MY ABILITY. THEY WANTED TO KNOW THE TIME, AND I EXPLAINED I WOULD ASK THEIR NURSE. PER GILL, THE BRONCH IS NOT SCHEDULED BECAUSE DR CALDWELL WANTED TO SEE HOW THE VEST WOULD DO FIRST AND THE PATIENT HAD BEEN REFUSING TO WEAR THE VEST. I EXPLAINED TO HER THAT THEY HAD TOLD ME DR YOON TALKED TO THEM LAST NIGHT AND STATED TO THEM THAT THE VEST ALONE WOULD TAKE A LONG TIME TO CLEAR OUT HER LUNGS, AND THAT THE BRONCH WAS THE BEST FOR HER AND THE VEST COULD KEEP HER FROM BEING THIS BAD. SO THE PATIENT AND HER SPOUSE ARE UNDER THE IMPRESSION THE BRONCH IS GOING TO BE DONE. GILL IS GOING TO TALK TO DR CALDWELL ABOUT THIS. @1503, CALL PLACED TO VICTOR HUGO BRAGG, CLINICAL HEMODIALYSIS TECHNICIAN WITH SMART VEST AT [phone]. EXPLAINED THAT THE PATIENT HAS CONSENTED TO THE VEST NOW. ALL PAPERWORK FAXED TO [phone]. CAM WILL EXPEDITE THE DELIVERY OF IT TO THEIR OFFICE. THEY DO NOT DELIVER TO THE PATIENT IN THE HOSPITAL, BUT THEY WILL HAVE IT READY TO DELIVER AFTER THEY GET HOME THE DAY OF DISCHARGE IF THEY KNOW BEFORE 1400 THE DAY BEFORE DISCHARGE. I HAVE EXPLAINED THAT THE EXTIMATED DISCHARGE WILL BE EARLY NEXT WEEK. HE STATED THAT THEY WILL GO AHEAD AND ORDER THE VEST TOMORROW. DCP- Discharge Planning Updated by [id number]: Jessica Moon on 12/12/17 3:[address] Patient Name: HEBER BISHOP Encounter No: [id number] : 1935 Primary Insurance: [employer] CHOICE PPO MCR ADVANT Anticipated DC Date: Planned Disposition: Home DCP follow-up note: VAISHNAVI CALLED AND SPOKE TO JOSE EDUARDO OF DR. CALDWELL'S OFFICE, , DISCUSSED OUTPATIENT PULOMONARY REHAB AND SMARTVEST ORDER. JOSE EDUARDO HAD FAX ISSUES AND THE ORDER WAS NOT RECEIVED BY [facility]; JOSE EDUARDO WILL CALL COMPLETE PULOMONARY REHAB WITH THE OUTPATIENT REHAB REFERRAL. JOSE EDUARDO BROUGHT CM THE ORDER FOR THE VEST FOR DOCTORS SIGNATURE AND SUPPORTING DOCUMENTATION. CM SPOKE TO PT IN ROOM TO OBTAIN SIGNATURE FOR VEST. PT REFUSED REPORTING THE ONE THEY USED YESTERDAY ALMOST KILLED HER AND SHE IS NOT WEARING ONE OF THOSE VEST AGAIN. CM ENCOURAGED PT TO CONSIDER THE OPTION AND ASKED TO HAVE THE VEST INVENTORY MANAGEMENT SPECIALIST SPEAK TO PT, PT REFUSED. PT WANTS ORDER CANCELLED SHE REFUSES TO WEAR IT AND WILL NOT TAKE DELIVERY. CM NOTIFIED VICTOR HUGO RBAGG OF SMARTVEST. PT REFUSED SMART VEST. JOSE EDUARDO OF DR. CERDA OFFICE IS ARRANGING PT'S OUTPATIENT REHAB AT COMPLETE PULMONARY REHAB. CM TO FOLLOW AND ASSIST NEEDED. Jessica Moon, CASE MANAGEMENT DCP- Discharge Planning Updated by [id number]: Jessica Moon on 12/11/17 3:[address] Patient Name: HEBER BISHOP Admission Status: ER Accout number: [id number] Admission Date: 12-04-2017 : 1935 Admission Diagnosis:SHORTNESS OF BREATH Attending: FRED HURLEY Current LOS: 7 Anticipated DC Date: Planned Disposition: Home Primary Insurance: HU[employer] CHOICE PPO MCR ADVANT Discharge Planning Comments: * Is the patient Alert and Oriented? Yes 0 * How many steps to enterexit or inside your home? NONE 0 * PCP DR. YOON 0 * [facility] [address] [facility] OR [facility] 0 * Preadmission Environment Home with Family 0 * ADLs Independent 0 * Equipment Oxygen Rolling Walker Shower Chair Walker 0 * Other Equipment HOME AND PORTABLE OXYGEN CONCENTRATOR [facility] - MEDICAL EQUIPMENT PROVIDER 0 * List name and contact numbers for known caregivers / representatives who currently or will assist patient after discharge: STEPHAN TAVO, DTR, BELLO BISHOP, SPOUSE, 0 * Verbal permission to speak to the caregivers and representatives has been obtained from the patient. Yes 0 * Community resources currently utilized None 0 * Please name any agencies selected above. NONE 0 * Additional services required to return to the preadmission environment? Yes 0 * Can the patient safely return to the preadmission environment? Yes 0 * Has this patient been hospitalized within the prior 30 days at any hospital? No 0 CM MET WITH PT,DAUGHTER AND SPOUSE IN ROOM TO DISCUSS DISCHARGE PLANNING AND NEEDS. HEBER BISHOP provided verbal consent to discuss current and ongoing needs with/in the presence of: HER SPOUSE BELLO AND DAUGHTER STEPHAN. PT REPORTS LIVING AT HOME INDEPENDENTLY WITH HER SPOUSE. PT'S DAUGHTER REPORTS THAT SHE TAKES CARE OF THINGS FOR BOTH PARENTS THEY HAVE TROUBLE REMEMBERING THINGS. PT REPORTS HAVING ALL NEEDED MEDICAL EQUIPMENT AT HOME FROM [facility] AND NO CURRENT OUTSIDE SERVICES ASSISTING IN THE HOME. CM DISCUSSED AVAILABILITY OF HOME HEALTH, REHAB SERVICES AND MEDICAL EQUIPMENT. PT REPORTS PLAN TO GO HOME AT DISCHARGE AND WANTED TO GO TO PULMONARY REHAB BUT FOR SOME REASON IT WAS ORDERED THROUGH DR. CALDWELL'S OFFICE BUT "FELL THROUGH THE CRACK[facility] AND THEY NEVER CALLED TO SCHEDULE"; PT'S DAUGHTER ALSO REPORTS THAT DR. CALDWELL'S OFFICE HAS BEEN TRYING TO ARRANGE A PERCUSSION VEST FOR HOME USE FOR THE PAST FEW WEEKS AND NOTHING HAS CAME OF THAT, EVEN WITH ASSISTANCE OF [facility] NURSE NUT STEAMER WINNIE. DAUGHTER REPORTS FAMILY WILL PICK PT UP FOR DISCHARGE HOME. PT PLANS TO DISCHARGE HOME WITH FAMILY; PT WANTS OUTPATIENT PULMONARY REHABILITATION AND WOULD LIKE A PERCUSSION VEST REPORTING DR. CERDA OFFICE HAS BEEN WORKING ON BOTH OF THESE FOR "WEEKS". CM TO DISCUSS WITH DR. CALDWELL AND WILL FOLLOW AND ASSIST NEEDED. Digital Product Specialist: Jessica Moon Appended by Jessica Moon on 12/11/2017 16:01 CDT: CM SPOKE TO RN VAISHNAVI TILLEY WHO DISCUSSED VEST AND OUTPATIENT PULMONARY REHAB WITH DR CALDWELL WHO ADVISED CM CALL HIS OFFICE, , SPEAK TO JOSE EDUARDO. CM [facility], , WAS ADVISED THAT JOSE EDUARDO IS OFF THE REMAINDER OF THE DAY AND TO CALL BACK AT 0900 TOMORROW. CM TO FOLLOW UP TOMORROW. JOAN MOON, CASE MANAGEMENT DCPIA - Discharge Planning Initial Assessment Updated by [id number]: Jessica Moon on 12/11/17 3:31 pm * Is the patient Alert and Oriented? Yes * How many steps to enterexit or inside your home? NONE * PCP DR. YOON * [facility] [address] [email or web address] OR [facility] * Preadmission Environment Home with Family * ADLs Independent * Equipment Oxygen Rolling Walker Shower Chair Walker * Other Equipment HOME AND PORTABLE OXYGEN CONCENTRATOR [employer] - MEDICAL EQUIPMENT PROVIDER * List name and contact numbers for known caregivers / representatives who currently or will assist patient after discharge: STEPHAN VO, DTR, BELLO BISHOP, SPOUSE, * Verbal permission to speak to the caregivers and representatives has been obtained from the patient. Yes * Community resources currently utilized None * Please name any agencies selected above. NONE * Additional services required to return to the preadmission environment? Yes * Can the patient safely return to the preadmission environment? Yes * Has this patient been hospitalized within the prior 30 days at any hospital? No External Providers [facility] [place] Next Contact Date: 12/26/2017 Service Request Date: Service Type: Resolution: Reviewer: Comments: Coverage Notice Reviewer: [id number] - Jessica Moon Notice Issued Date-Time: 12/25/2017 12:58 Notice Type: Patient Choice Letter Notice Delivered To: Family Member Relationship to Patient: Daughter Nurse Practitioner Home Assessments Name: STEPHAN VO Delivery Method: HAND - Hand Delivered Analy Days: Prior Verbal Notification: Recipient Understood Notice: Yes Recipient Signature: Yes Med Rec Note Co-signed by Attending: Coverage Notice Comment: [facility] Reviewer: [email or web address] Amanda Moon Notice Issued Date-Time: 12/25/2017 12:58 Notice Type: IM Discharge Notice Notice Delivered To: Family Member Relationship to Patient: Daughter Nurse Practitioner Home Assessments Name: STEPHAN VO Delivery Method: HAND - Hand Delivered Analy Days: Prior Verbal Notification: Recipient Understood Notice: Yes Recipient Signature: Yes Med Rec Note Co-signed by Attending: Coverage Notice Comment: Patient Name: HEBER BISHOP Page [phone] All edits/amendments must be made on the electronic document DICTATION DATE: 12/27/17 1549 AS400 OPERATOR: 12/27/17 1549 RPT#: [id number] DC DATE: STATUS: ADM IN [address] [address] [place] [address] END OF REPORT
--- NOTE | ~2017-12-04 | EC ---
PATIENT:HEBER BISHOP DATE OF SERVICE: 12/04/17 SEX: F MEDICAL RECORD: [id number] DATE OF : [birth year] LOCATION:D.M2 D.210 AGE OF PATIENT: 81 ADMISSION DATE: 12/04/17 REFERRING PHYSICIAN: INTERPRETING PHYSICIAN: CARMEN OSBORNE MD ECHOCARDIOGRAM REPORT ECHO CHARGES 4 ECHO COMPLETE Date: 12/05 CLINICAL DIAGNOSIS: CHF ECHOCARDIOGRAPHIC MEASUREMENTS (adult normal given) AC root (d.<3.7cm) 3.6 cm LV Septum d (<1.2 cm> 1.3 cm Valve Excursion 1.9 cm LV Septum (systole) 1.4 cm Left Atria (s.<4.0cm> 3.9 cm LVPW d(<1.2cm) 1.3 cm RV (d.<2.3cm) 4.4 cm LVPW (sytole) 1.5 cm LV diastole(<5.6CM) 3.9 cm MV E-F(>70mm/sec) cm LV systole 2.7 cm LVOT Diameter 1.7 cm MV exc.(>10mm) 1.2 cm Est.ejection fraction (50-75%) % DOPPLER: LVIT cm/sec A 55.0 cm/sec E 35.0 cm/sec LA cm/sec RVSP 36 mmHg LVOT 88 cm/sec AOP1/2T m/s Asc. Ao 133 cm/sec RVOT 52 cm/sec RA cm/sec PA 109 cm/sec AV Gradient Peak 7.04 mmHg AV Mean 4.08 mmHg AV Area 1.8 cm MV Gradient Peak 4.09 mmHg MV Mean 1.00 mmHg MV Area cm COMMENTS: Visitor Services Assistant: Reyna JOHNSON Cnc Mill And Lathe Operator: Prem Osborne TAPE# PACS Pericardial Effusion N DATE OF SERVICE: 12/06/2017 PROCEDURE: Transthoracic echocardiogram. FINDINGS: 1. Left ventricle has moderate concentric left ventricular hypertrophy. Inflow characteristics are consistent with diastolic dysfunction. Ejection fraction is 65% to 70%. 2. The left atrium is normal size, shape and function. 3. The mitral valve is normal. ECHOCARDIOGRAM REPORT [id number] HEBER BISHOP 4. The aortic valve is normal. 5. The tricuspid valve has mild tricuspid regurgitation. The RVSP is 40 mmHg, mildly elevated. 6. The right ventricle, in comparison to previous echocardiogram, is severely dilated and that is from July. 7. The right atrium is moderately dilated. 8. The pericardium is normal. CONCLUSIONS: The patient has a normal LV systolic function. Evidence of hypertensive heart disease. There has been significant change in RV diameter and function consistent with possible pressure volume overload at some point in time, such as a pulmonary embolism. TRANSINT:[id number] Voice Confirmation ID: [id number] DOCUMENT ID: [id number] CARMEN OSBORNE MD at 0956 CC: [id number] DICTATION DATE: 12/06/17 0907 FLEET COORDINATOR: 12/06/17 1011 ADM IN [facility] [address] [place] [address]
[~2017-12-04 15:04] MED LIST changes: +LEVAQUIN500 MG PO; +STERAPRED DS 1010 MG PO
[2017-12-04 16:46] LABS: HEMATOCRIT 33.7 % (36.0-48.0); HEMOGLOBIN 9.5 g/dL (12-16); MCH 21.9 pg (26.0-34.0); MCHC 28.2 g/dL (31.0-37.0); MCV 77.6 fL (80.0-100.0); MEAN PLATELET VOLUME 8.4 fL (7.4-10.4); PLATELET COUNT 503 10x3/uL (130-400); RBC 4.34 10x6/uL (4.00-5.40); RDW 19.3 % (11.5-14.5); WBC 29.1 10x3/uL (4.8-10.8)
[2017-12-04 16:53] VITALS: BP 81/49
[2017-12-04 16:55] LABS: APTT 32.6 SECONDS (22.8-39.4); INR 1.17 (0.85-1.17); PROTIME 14.5 SECONDS (11.6-15.0)
[2017-12-04 16:58] LABS: ALBUMIN 2.5 g/dL (3.4-5.0); ALKALINE PHOSPHATASE 112 U/L (46-116); ALT (SGPT) 24 U/L (10-68); CALC OSMOLALITY 283 mosm/kg (275-300); CALCIUM 9.6 mg/dL (8.5-10.1); CARBON DIOXIDE 38.8 mmol/L (21.0-32.0); CHLORIDE - SERUM 99 mmol/L (98-107); CREATININE - SERUM 1.5 mg/dL (0.6-1.3); GLUCOSE 123 mg/dL (74-106); POTASSIUM - SERUM 4.8 mmol/L (3.5-5.1); PROTEIN - SERUM 7.9 g/dL (6.4-8.2); SODIUM 140 mmol/L (136-145); UREA NITROGEN 25 mg/dL (7-18); eGFR NON AFRICAN AMERICAN 35 mL/min (90-120)
[2017-12-04 17:14] LABS: CKMB 0.6 U/L (0.0-3.6); CREATINE KINASE 17 UL (21-215); PRO BNP 19961 pg/mL (0-450)
[2017-12-04 17:15] LABS: EOSINOPHILS 2 % (0-7); LYMPHOCYTES 11 % (15-50); MONOCYTES 1 % (2-11); NEUTROPHILS 86 % (40-80); PLATELET ESTIMATE INCREASED
[2017-12-04 17:39] LABS: TROPONIN-I < 0.017 ng/mL (0.000-0.060)
[2017-12-04 18:50] VITALS: BP 96/53
[2017-12-04 20:07] VITALS: BP 93/58; BMI 21.1
[2017-12-04 21:00] VITALS: BP 106/64
[2017-12-04 22:00] VITALS: BP 108/70
[2017-12-04 23:00] VITALS: BP 98/61
[2017-12-05] VITALS (20 sets, daily range): BP systolic 83–121; BP diastolic 52–78; Ht 152.4 cm; Wt 55.5 kg
[2017-12-05 11:00] LABS: BASOPHILS 0 % (0-2); EOSINOPHILS 0 % (0-7); HEMATOCRIT 31.4 % (36.0-48.0); HEMOGLOBIN 8.8 g/dL (12-16); IMMATURE GRANULOCYTES 0.3 % (0-5); LYMPHOCYTES 3.1 % (15-50); MCH 21.9 pg (26.0-34.0); MCV 78.1 fL (80.0-100.0); MEAN PLATELET VOLUME 8.5 fL (7.4-10.4); MONOCYTES 1.2 % (2-11); NEUTROPHILS 95.4 % (40-80); PLATELET COUNT 448 10x3/uL (130-400); RBC 4.02 10x6/uL (4.00-5.40); RDW 19.2 % (11.5-14.5); WBC 21.6 10x3/uL (4.8-10.8)
[2017-12-05 11:23] LABS: ANION GAP 6.9 mmol/L (8-16); CALCIUM 8.5 mg/dL (8.5-10.1); CARBON DIOXIDE 38.1 mmol/L (21.0-32.0); CREATININE - SERUM 1.6 mg/dL (0.6-1.3)
[2017-12-06] VITALS: BP 102/60
[2017-12-06 04:00] VITALS: BP 110/69
[2017-12-06 06:31] LABS: BASOPHILS 0 % (0-2); EOSINOPHILS 0 % (0-7); HEMATOCRIT 29.4 % (36.0-48.0); HEMOGLOBIN 8.1 g/dL (12-16); IMMATURE GRANULOCYTES 0.4 % (0-5); LYMPHOCYTES 3.9 % (15-50); MCH 21.1 pg (26.0-34.0); MCHC 27.6 g/dL (31.0-37.0); MCV 76.6 fL (80.0-100.0); MEAN PLATELET VOLUME 8.4 fL (7.4-10.4); MONOCYTES 2.6 % (2-11); NEUTROPHILS 93.1 % (40-80); PLATELET COUNT 492 10x3/uL (130-400); RBC 3.84 10x6/uL (4.00-5.40); RDW 19.3 % (11.5-14.5)
[2017-12-06 06:48] LABS: CALCIUM 8.3 mg/dL (8.5-10.1); CARBON DIOXIDE 38.4 mmol/L (21.0-32.0); CREATININE - SERUM 1.4 mg/dL (0.6-1.3); POTASSIUM - SERUM 4.4 mmol/L (3.5-5.1)
[2017-12-06 09:54] VITALS: BP 103/60
[2017-12-06 11:00] VITALS: BP 114/60
[2017-12-06 11:04] LABS: % SATURATION 4 % (15-55); IRON 13 ug/dl (35-150); TOTAL IRON BIND CAPACITY 297 ug/dl (260-445); UNSAT IRON BIND CAPACITY 284 ug/dl (150-375)
[2017-12-06] MEDS ORDERED: ENTRESTO 24 MG1 EACH PO (15:54)
[2017-12-06] MEDS ORDERED: MUCOMYST 2800 MG/4 M PO (15:57)
[2017-12-06 20:00] VITALS: BP 97/56
[2017-12-07] VITALS: BP 113/65
[2017-12-07 04:00] VITALS: BP 98/64
[2017-12-07 05:33] LABS: BASOPHILS 0 % (0-2); EOSINOPHILS 0 % (0-7); HEMATOCRIT 29.5 % (36.0-48.0); HEMOGLOBIN 8.1 g/dL (12-16); IMMATURE GRANULOCYTES 0.3 % (0-5); LYMPHOCYTES 4.1 % (15-50); MCHC 27.5 g/dL (31.0-37.0); MCV 76.4 fL (80.0-100.0); MEAN PLATELET VOLUME 8.3 fL (7.4-10.4); MONOCYTES 3.5 % (2-11); NEUTROPHILS 92.1 % (40-80); PLATELET COUNT 504 10x3/uL (130-400); RBC 3.86 10x6/uL (4.00-5.40); RDW 19.2 % (11.5-14.5); WBC 17.9 10x3/uL (4.8-10.8)
[2017-12-07 06:01] LABS: ANION GAP 5.7 mmol/L (8-16); CALCIUM 8.4 mg/dL (8.5-10.1); CARBON DIOXIDE 37.9 mmol/L (21.0-32.0); CREATININE - SERUM 1.5 mg/dL (0.6-1.3); POTASSIUM - SERUM 4.6 mmol/L (3.5-5.1)
[2017-12-07 09:17] LABS: FOLATE (FOLIC ACID) - SERUM >20.0 ng/mL (>3.0)
[2017-12-07 09:28] VITALS: BP 115/72
[2017-12-07 12:30] VITALS: BP 108/62
[2017-12-07 16:10] VITALS: BP 110/67
[2017-12-07 20:00] VITALS: BP 110/66
[2017-12-08] VITALS: BP 107/63
[2017-12-08 04:26] LABS: BASOPHILS 0 % (0-2); EOSINOPHILS 0 % (0-7); HEMATOCRIT 29.9 % (36.0-48.0); HEMOGLOBIN 8.1 g/dL (12-16); IMMATURE GRANULOCYTES 0.2 % (0-5); LYMPHOCYTES 4.3 % (15-50); MCHC 27.1 g/dL (31.0-37.0); MCV 77.5 fL (80.0-100.0); MEAN PLATELET VOLUME 8.1 fL (7.4-10.4); MONOCYTES 7.6 % (2-11); NEUTROPHILS 87.9 % (40-80); PLATELET COUNT 476 10x3/uL (130-400); RBC 3.86 10x6/uL (4.00-5.40); RDW 18.9 % (11.5-14.5); WBC 17.5 10x3/uL (4.8-10.8)
[2017-12-08 04:53] LABS: ANION GAP 6.1 mmol/L (8-16); CALCIUM 8.5 mg/dL (8.5-10.1); CARBON DIOXIDE 36.9 mmol/L (21.0-32.0); CREATININE - SERUM 1.4 mg/dL (0.6-1.3)
[2017-12-08 04:55] VITALS: BP 114/72
[2017-12-08 09:23] VITALS: BP 113/73
[2017-12-08 11:50] VITALS: BP 109/67
[2017-12-08 15:48] VITALS: BP 121/70
[2017-12-08 21:37] VITALS: BP 104/55
[2017-12-09 01:32] VITALS: BP 115/75
[2017-12-09 04:58] LABS: BASOPHILS 0.1 % (0-2); EOSINOPHILS 0.1 % (0-7); IMMATURE GRANULOCYTES 0.4 % (0-5); LYMPHOCYTES 11.6 % (15-50); MCH 20.8 pg (26.0-34.0); MCHC 26.7 g/dL (31.0-37.0); MCV 77.9 fL (80.0-100.0); MEAN PLATELET VOLUME 8.4 fL (7.4-10.4); MONOCYTES 11.9 % (2-11); NEUTROPHILS 75.9 % (40-80); PLATELET COUNT 456 10x3/uL (130-400); RBC 3.85 10x6/uL (4.00-5.40); RDW 19.1 % (11.5-14.5); WBC 16.4 10x3/uL (4.8-10.8)
[2017-12-09 05:14] LABS: ANION GAP 3.9 mmol/L (8-16); CALCIUM 8.9 mg/dL (8.5-10.1); CARBON DIOXIDE 39.1 mmol/L (21.0-32.0); CREATININE - SERUM 1.4 mg/dL (0.6-1.3)
[2017-12-09 06:11] VITALS: BP 104/60
[2017-12-09 09:07] VITALS: BP 125/69
[2017-12-09 12:29] VITALS: BP 112/74
[2017-12-09 16:54] VITALS: BP 115/71
[2017-12-09 20:51] VITALS: BP 108/68
[2017-12-10 00:37] VITALS: BP 121/76
[2017-12-10 04:53] LABS: BASOPHILS 0.1 % (0-2); EOSINOPHILS 0.3 % (0-7); HEMATOCRIT 28.5 % (36.0-48.0); HEMOGLOBIN 7.7 g/dL (12-16); IMMATURE GRANULOCYTES 1.4 % (0-5); LYMPHOCYTES 10.9 % (15-50); MCV 77.7 fL (80.0-100.0); MONOCYTES 11.3 % (2-11); PLATELET COUNT 400 10x3/uL (130-400); RBC 3.67 10x6/uL (4.00-5.40); RDW 18.9 % (11.5-14.5); WBC 18.5 10x3/uL (4.8-10.8)
[2017-12-10 05:12] LABS: ANION GAP 3.5 mmol/L (8-16); CALCIUM 8.3 mg/dL (8.5-10.1); CREATININE - SERUM 1.3 mg/dL (0.6-1.3)
[2017-12-10 05:13] LABS: CARBON DIOXIDE 42.5 mmol/L (21.0-32.0)
[2017-12-10 06:06] VITALS: BP 106/70
[2017-12-10 08:48] VITALS: BP 124/77
[2017-12-10 11:58] VITALS: BP 112/64
[2017-12-10 17:09] VITALS: BP 105/62
[2017-12-10 20:30] VITALS: BP 119/57
[2017-12-11 00:30] VITALS: BP 118/74
[2017-12-11 04:30] VITALS: BP 124/76
[2017-12-11 05:13] LABS: ANION GAP 3.5 mmol/L (8-16); CALCIUM 8.3 mg/dL (8.5-10.1); CREATININE - SERUM 1.3 mg/dL (0.6-1.3); POTASSIUM - SERUM 4.6 mmol/L (3.5-5.1)
[2017-12-11 05:30] LABS: CARBON DIOXIDE 42.1 mmol/L (21.0-32.0)
[2017-12-11 05:32] LABS: HEMATOCRIT 27.2 % (36.0-48.0); HEMOGLOBIN 7.3 g/dL (12-16); MCHC 26.8 g/dL (31.0-37.0); MCV 78.4 fL (80.0-100.0); MEAN PLATELET VOLUME 8.4 fL (7.4-10.4); PLATELET COUNT 383 10x3/uL (130-400); RBC 3.47 10x6/uL (4.00-5.40); RDW 19.7 % (11.5-14.5); WBC 20.5 10x3/uL (4.8-10.8)
[2017-12-11 06:10] LABS: EOSINOPHILS 2 % (0-7); LYMPHOCYTES 8 % (15-50); MONOCYTES 9 % (2-11); NEUTROPHILS 78 % (40-80); PLATELET ESTIMATE NORMAL; PLATELET MORPHOLOGY GIANT PLTS PRESENT
[2017-12-11 06:11] LABS: ELLIPTOCYTES OCC; HYPOCHROMASIA 2+
[2017-12-11 09:39] VITALS: BP 120/68
[2017-12-11 13:30] VITALS: BP 122/74
[2017-12-11 17:09] VITALS: BP 110/63
[2017-12-11 20:00] VITALS: BP 104/57
[2017-12-12] VITALS: BP 101/68
[2017-12-12 04:00] VITALS: BP 106/66
[2017-12-12 06:38] LABS: CALCIUM 8.2 mg/dL (8.5-10.1); CREATININE - SERUM 1.2 mg/dL (0.6-1.3); MAGNESIUM - SERUM 2.3 mg/dL (1.8-2.4); PHOSPHOROUS 1.9 mg/dL (2.5-4.9); POTASSIUM - SERUM 4.7 mmol/L (3.5-5.1)
[2017-12-12 06:42] LABS: ANION GAP 4.7 mmol/L (8-16)
[2017-12-12 07:23] LABS: BASOPHILS 0.1 % (0-2); EOSINOPHILS 0.8 % (0-7); HEMATOCRIT 26.2 % (36.0-48.0); IMMATURE GRANULOCYTES 2.9 % (0-5); LYMPHOCYTES 12.2 % (15-50); MCH 21.3 pg (26.0-34.0); MCHC 27.1 g/dL (31.0-37.0); MCV 78.4 fL (80.0-100.0); MEAN PLATELET VOLUME 8.1 fL (7.4-10.4); MONOCYTES 10.1 % (2-11); NEUTROPHILS 73.9 % (40-80); PLATELET COUNT 354 10x3/uL (130-400); RBC 3.34 10x6/uL (4.00-5.40); RDW 20.4 % (11.5-14.5); WBC 17.1 10x3/uL (4.8-10.8)
[2017-12-12 07:26] LABS: HEMOGLOBIN 7.1 g/dL (12-16)
[2017-12-12 08:21] VITALS: BP 119/67
[2017-12-12 11:47] VITALS: BP 114/64
[2017-12-12 16:30] VITALS: BP 131/71
[2017-12-12 20:49] VITALS: BP 124/75
[2017-12-13 00:35] VITALS: BP 127/77
[2017-12-13 05:15] VITALS: BP 115/79
[2017-12-13 06:27] LABS: BASOPHILS 0.1 % (0-2); EOSINOPHILS 0 % (0-7); IMMATURE GRANULOCYTES 2.8 % (0-5); LYMPHOCYTES 8.9 % (15-50); MCH 24.8 pg (26.0-34.0); MCHC 29.7 g/dL (31.0-37.0); MEAN PLATELET VOLUME 8.8 fL (7.4-10.4); MONOCYTES 9.3 % (2-11); NEUTROPHILS 78.9 % (40-80); RDW 20.3 % (11.5-14.5); WBC 15.7 10x3/uL (4.8-10.8)
[2017-12-13 06:43] LABS: HEMATOCRIT 36.7 % (36.0-48.0); HEMOGLOBIN 10.9 g/dL (12-16); MCV 83.4 fL (80.0-100.0); PLATELET COUNT 281 10x3/uL (130-400)
[2017-12-13 07:06] LABS: ALBUMIN 2.4 g/dL (3.4-5.0); ANION GAP 5.9 mmol/L (8-16); BILIRUBIN - TOTAL 0.43 mg/dL (0.2-1.3); CALCIUM 8.2 mg/dL (8.5-10.1); CARBON DIOXIDE 36.8 mmol/L (21.0-32.0); CREATININE - SERUM 1.1 mg/dL (0.6-1.3); PHOSPHOROUS 2.6 mg/dL (2.5-4.9); POTASSIUM - SERUM 4.7 mmol/L (3.5-5.1)
[2017-12-13 07:17] LABS: MAGNESIUM - SERUM 2.4 mg/dL (1.8-2.4)
[2017-12-13 07:55] VITALS: BP 105/69
[2017-12-13 11:14] VITALS: BP 110/58
[2017-12-13 15:43] VITALS: BP 116/71
[2017-12-13 20:21] VITALS: BP 118/70
[2017-12-14 00:31] VITALS: BP 117/72
[2017-12-14 02:58] LABS: BASOPHILS 0.1 % (0-2); EOSINOPHILS 1.4 % (0-7); HEMATOCRIT 37.3 % (36.0-48.0); HEMOGLOBIN 11.1 g/dL (12-16); IMMATURE GRANULOCYTES 3.2 % (0-5); LYMPHOCYTES 15.4 % (15-50); MCH 25.3 pg (26.0-34.0); MCHC 29.8 g/dL (31.0-37.0); MCV 85.2 fL (80.0-100.0); MEAN PLATELET VOLUME 8.4 fL (7.4-10.4); MONOCYTES 13.4 % (2-11); NEUTROPHILS 66.5 % (40-80); PLATELET COUNT 242 10x3/uL (130-400); RBC 4.38 10x6/uL (4.00-5.40); RDW 22.2 % (11.5-14.5); WBC 14.1 10x3/uL (4.8-10.8)
[2017-12-14 03:18] LABS: ANION GAP 5.8 mmol/L (8-16); CALCIUM 8.2 mg/dL (8.5-10.1); CREATININE - SERUM 1.1 mg/dL (0.6-1.3); POTASSIUM - SERUM 4.8 mmol/L (3.5-5.1); VANCOMYCIN - TROUGH 7.6 ug/mL (10.0-20.0)
[2017-12-14 04:37] VITALS: BP 125/73
[2017-12-14 07:52] VITALS: BP 119/74
[2017-12-14 12:15] VITALS: BP 117/65
[2017-12-14 15:16] LABS: APPEARANCE CLEAR (CLEAR); BILIRUBIN NEGATIVE (NEGATIVE); COLOR STRAW (YELLOW); GLUCOSE NEGATIVE (NEGATIVE); KETONE NEGATIVE (NEGATIVE); NITRITE NEGATIVE (NEGATIVE); PROTEIN NEGATIVE (NEGATIVE); UROBILINOGEN NORMAL (NORMAL)
[2017-12-14 16:12] VITALS: BP 107/55
[2017-12-14 21:39] VITALS: BP 121/70
[2017-12-14 21:42] LABS: BASOPHILS 0.1 % (0-2); EOSINOPHILS 0.6 % (0-7); HEMATOCRIT 40.3 % (36.0-48.0); IMMATURE GRANULOCYTES 2.7 % (0-5); LYMPHOCYTES 10.5 % (15-50); MCH 25.8 pg (26.0-34.0); MCHC 29.8 g/dL (31.0-37.0); MCV 86.7 fL (80.0-100.0); MEAN PLATELET VOLUME 8.4 fL (7.4-10.4); MONOCYTES 9.4 % (2-11); NEUTROPHILS 76.7 % (40-80); PLATELET COUNT 261 10x3/uL (130-400); RBC 4.65 10x6/uL (4.00-5.40); RDW 23.7 % (11.5-14.5); WBC 14.3 10x3/uL (4.8-10.8)
[2017-12-14 21:48] LABS: INR 0.92 (0.85-1.17)
[2017-12-14 21:49] LABS: APTT 26.5 SECONDS (22.8-39.4)
[2017-12-15] VITALS (12 sets, daily range): BP systolic 102–145; BP diastolic 76–103
[2017-12-15 04:53] LABS: BASOPHILS 0.2 % (0-2); EOSINOPHILS 0.1 % (0-7); HEMATOCRIT 37.8 % (36.0-48.0); HEMOGLOBIN 11.2 g/dL (12-16); IMMATURE GRANULOCYTES 1.8 % (0-5); LYMPHOCYTES 3.9 % (15-50); MCH 25.7 pg (26.0-34.0); MCHC 29.6 g/dL (31.0-37.0); MCV 86.9 fL (80.0-100.0); MEAN PLATELET VOLUME 8.5 fL (7.4-10.4); MONOCYTES 4.1 % (2-11); NEUTROPHILS 89.9 % (40-80); PLATELET COUNT 238 10x3/uL (130-400); RBC 4.35 10x6/uL (4.00-5.40); RDW 23.9 % (11.5-14.5); WBC 12.8 10x3/uL (4.8-10.8)
[2017-12-15 05:15] LABS: ANION GAP 8.7 mmol/L (8-16); CALCIUM 8.1 mg/dL (8.5-10.1); CARBON DIOXIDE 36.6 mmol/L (21.0-32.0); CREATININE - SERUM 1.2 mg/dL (0.6-1.3); POTASSIUM - SERUM 5.3 mmol/L (3.5-5.1); VANCOMYCIN - TROUGH 39.7 ug/mL (10.0-20.0)
[2017-12-15 14:30] LABS: BASOPHILS 0.1 % (0-2); EOSINOPHILS 0 % (0-7); HEMATOCRIT 41.6 % (36.0-48.0); HEMOGLOBIN 12.1 g/dL (12-16); IMMATURE GRANULOCYTES 1.3 % (0-5); LYMPHOCYTES 4.7 % (15-50); MCHC 29.1 g/dL (31.0-37.0); MEAN PLATELET VOLUME 8.5 fL (7.4-10.4); NEUTROPHILS 87.9 % (40-80); PLATELET COUNT 239 10x3/uL (130-400); RBC 4.65 10x6/uL (4.00-5.40); RDW 24.8 % (11.5-14.5); WBC 10.8 10x3/uL (4.8-10.8)
[2017-12-15 14:39] LABS: MCV 89.5 fL (80.0-100.0)
[2017-12-15 16:03] LABS: MAGNESIUM - SERUM 2.5 mg/dL (1.8-2.4)
[2017-12-15 16:05] LABS: TROPONIN-I 0.086 ng/mL (0.000-0.060)
[2017-12-16] VITALS (18 sets, daily range): BP systolic 91–149; BP diastolic 55–102
[2017-12-16 08:50] LABS: BASOPHILS 0.1 % (0-2); EOSINOPHILS 0.4 % (0-7); HEMATOCRIT 39.8 % (36.0-48.0); HEMOGLOBIN 11.4 g/dL (12-16); IMMATURE GRANULOCYTES 0.9 % (0-5); LYMPHOCYTES 8.1 % (15-50); MCH 25.9 pg (26.0-34.0); MCHC 28.6 g/dL (31.0-37.0); MCV 90.5 fL (80.0-100.0); MEAN PLATELET VOLUME 8.5 fL (7.4-10.4); MONOCYTES 6.4 % (2-11); NEUTROPHILS 84.1 % (40-80); PLATELET COUNT 194 10x3/uL (130-400); RDW 25.7 % (11.5-14.5); WBC 13.8 10x3/uL (4.8-10.8)
[2017-12-16 09:06] LABS: ALBUMIN 2.5 g/dL (3.4-5.0); ANION GAP 2.8 mmol/L (8-16); BILIRUBIN - TOTAL 0.39 mg/dL (0.2-1.3); CALCIUM 8.6 mg/dL (8.5-10.1); CARBON DIOXIDE 39.4 mmol/L (21.0-32.0); CREATININE - SERUM 1.4 mg/dL (0.6-1.3); MAGNESIUM - SERUM 2.3 mg/dL (1.8-2.4); PHOSPHOROUS 3.6 mg/dL (2.5-4.9); PROTEIN - SERUM 6.5 g/dL (6.4-8.2); VANCOMYCIN - RANDOM 18.8 ug/mL (10.0-20.0)
[2017-12-16 09:08] LABS: POTASSIUM - SERUM 4.2 mmol/L (3.5-5.1)
[2017-12-16 17:07] LABS: AFB SPECIMEN PROCESSING Concentration (())
[2017-12-17] VITALS (14 sets, daily range): BP systolic 114–161; BP diastolic 71–111
[2017-12-17 03:36] LABS: HEMATOCRIT 39.2 % (36.0-48.0); HEMOGLOBIN 11.5 g/dL (12-16); LYMPHOCYTES 4.3 % (15-50); MCH 25.9 pg (26.0-34.0); MCHC 29.3 g/dL (31.0-37.0); MEAN PLATELET VOLUME 8.1 fL (7.4-10.4); NEUTROPHILS 93.3 % (40-80); RBC 4.44 10x6/uL (4.00-5.40); RDW 26.2 % (11.5-14.5); WBC 11.2 10x3/uL (4.8-10.8)
[2017-12-17 03:40] LABS: MCV 88.3 fL (80.0-100.0); PLATELET COUNT 233 10x3/uL (130-400)
[2017-12-17 03:54] LABS: ALBUMIN 2.5 g/dL (3.4-5.0); ANION GAP 6.4 mmol/L (8-16); BILIRUBIN - TOTAL 0.5 mg/dL (0.2-1.3); CALCIUM 8.6 mg/dL (8.5-10.1); CARBON DIOXIDE 37.3 mmol/L (21.0-32.0); CREATININE - SERUM 1.1 mg/dL (0.6-1.3); POTASSIUM - SERUM 4.7 mmol/L (3.5-5.1); PROTEIN - SERUM 6.4 g/dL (6.4-8.2)
[2017-12-18] VITALS (12 sets, daily range): BP systolic 115–150; BP diastolic 68–97
[2017-12-18 02:23] LABS: HEMATOCRIT 39.3 % (36.0-48.0); HEMOGLOBIN 11.5 g/dL (12-16); LYMPHOCYTES 2.7 % (15-50); MCH 25.9 pg (26.0-34.0); MCHC 29.3 g/dL (31.0-37.0); MCV 88.5 fL (80.0-100.0); MEAN PLATELET VOLUME 7.9 fL (7.4-10.4); NEUTROPHILS 92.1 % (40-80); PLATELET COUNT 213 10x3/uL (130-400); RBC 4.44 10x6/uL (4.00-5.40); RDW 27.1 % (11.5-14.5); WBC 8.6 10x3/uL (4.8-10.8)
[2017-12-18 02:48] LABS: ANION GAP 5.7 mmol/L (8-16); CALCIUM 8.7 mg/dL (8.5-10.1); CARBON DIOXIDE 39.8 mmol/L (21.0-32.0); CREATININE - SERUM 1.2 mg/dL (0.6-1.3); MAGNESIUM - SERUM 2.3 mg/dL (1.8-2.4); PHOSPHOROUS 3.6 mg/dL (2.5-4.9); POTASSIUM - SERUM 4.5 mmol/L (3.5-5.1); THYROID STIMULATING HORMONE 1.33 uIU/mL (0.36-3.74)
[2017-12-18 17:13] LABS: FUNGUS STAIN Final report (())
[2017-12-19] VITALS (7 sets, daily range): BP systolic 122–141; BP diastolic 72–98
[2017-12-19 04:58] LABS: BASOPHILS 0.1 % (0-2); EOSINOPHILS 1.3 % (0-7); HEMOGLOBIN 11.3 g/dL (12-16); IMMATURE GRANULOCYTES 0.7 % (0-5); LYMPHOCYTES 14.6 % (15-50); MCV 89.9 fL (80.0-100.0); MEAN PLATELET VOLUME 8.8 fL (7.4-10.4); MONOCYTES 8.9 % (2-11); NEUTROPHILS 74.4 % (40-80); PLATELET COUNT 210 10x3/uL (130-400); RBC 4.34 10x6/uL (4.00-5.40); RDW 27.1 % (11.5-14.5); WBC 9.7 10x3/uL (4.8-10.8)
[2017-12-19 05:07] LABS: ANION GAP 5.1 mmol/L (8-16); CALCIUM 8.2 mg/dL (8.5-10.1); CREATININE - SERUM 1.2 mg/dL (0.6-1.3); POTASSIUM - SERUM 3.9 mmol/L (3.5-5.1)
[2017-12-19 05:16] LABS: CARBON DIOXIDE 42.8 mmol/L (21.0-32.0)
[2017-12-20 03:00] VITALS: BP 130/79
[2017-12-20 05:35] LABS: BASOPHILS 0.1 % (0-2); EOSINOPHILS 2.4 % (0-7); HEMATOCRIT 39.4 % (36.0-48.0); HEMOGLOBIN 11.4 g/dL (12-16); IMMATURE GRANULOCYTES 0.5 % (0-5); LYMPHOCYTES 13.8 % (15-50); MCH 26.1 pg (26.0-34.0); MCHC 28.9 g/dL (31.0-37.0); MCV 90.4 fL (80.0-100.0); MEAN PLATELET VOLUME 8.6 fL (7.4-10.4); NEUTROPHILS 74.2 % (40-80); PLATELET COUNT 197 10x3/uL (130-400); RBC 4.36 10x6/uL (4.00-5.40); RDW 27.4 % (11.5-14.5); WBC 7.9 10x3/uL (4.8-10.8)
[2017-12-20 05:58] LABS: ANION GAP 4.8 mmol/L (8-16); CALCIUM 8.2 mg/dL (8.5-10.1); CREATININE - SERUM 1.2 mg/dL (0.6-1.3); POTASSIUM - SERUM 3.5 mmol/L (3.5-5.1)
[2017-12-20 06:01] LABS: CARBON DIOXIDE 41.7 mmol/L (21.0-32.0)
[2017-12-20 07:00] VITALS: BP 132/86
[2017-12-20 11:00] VITALS: BP 126/81
[2017-12-20 21:52] VITALS: BP 129/73
[2017-12-21 01:17] VITALS: BP 143/74
[2017-12-21 04:00] VITALS: BP 138/79
[2017-12-21 08:22] VITALS: BP 134/89
[2017-12-21 11:34] VITALS: BP 121/79
[2017-12-21 15:57] VITALS: BP 133/62
[2017-12-21 19:13] LABS: FUNGUS CULTURE RESULT 1 Candida albicans (())
[2017-12-21 21:29] VITALS: BP 118/83
[2017-12-22 01:30] VITALS: BP 130/81
[2017-12-22 06:03] VITALS: BP 141/78
[2017-12-22 08:26] VITALS: BP 119/68
[2017-12-22 12:27] VITALS: BP 127/69
[2017-12-22 16:40] VITALS: BP 125/74
[2017-12-22 21:17] VITALS: BP 126/66
[2017-12-23 01:26] VITALS: BP 139/83
[2017-12-23 05:39] VITALS: BP 142/73
[2017-12-23 08:57] VITALS: BP 126/68
[2017-12-23 11:51] VITALS: BP 124/72
[2017-12-23 15:51] VITALS: BP 121/71
[2017-12-23 20:00] VITALS: BP 125/85
[2017-12-24 04:00] VITALS: BP 122/83
[2017-12-24 05:01] LABS: BASOPHILS 0.1 % (0-2); EOSINOPHILS 0.2 % (0-7); HEMATOCRIT 38.5 % (36.0-48.0); HEMOGLOBIN 11.2 g/dL (12-16); IMMATURE GRANULOCYTES 0.1 % (0-5); LYMPHOCYTES 5.3 % (15-50); MCH 26.5 pg (26.0-34.0); MCHC 29.1 g/dL (31.0-37.0); MEAN PLATELET VOLUME 8.8 fL (7.4-10.4); MONOCYTES 2.7 % (2-11); NEUTROPHILS 91.6 % (40-80); PLATELET COUNT 206 10x3/uL (130-400); RBC 4.23 10x6/uL (4.00-5.40); RDW 27.1 % (11.5-14.5); WBC 10.5 10x3/uL (4.8-10.8)
[2017-12-24 05:21] LABS: ANION GAP 5.8 mmol/L (8-16); CALCIUM 8.7 mg/dL (8.5-10.1); POTASSIUM - SERUM 4.5 mmol/L (3.5-5.1)
[2017-12-24 05:24] LABS: CARBON DIOXIDE 40.7 mmol/L (21.0-32.0)
[2017-12-24 08:05] VITALS: BP 126/78
[2017-12-24 11:18] VITALS: BP 127/73
[2017-12-24 20:30] VITALS: BP 106/68
[2017-12-25 00:30] VITALS: BP 142/71
[2017-12-25 04:30] VITALS: BP 109/77
[2017-12-25 04:40] LABS: BASOPHILS 0.1 % (0-2); EOSINOPHILS 2.1 % (0-7); HEMATOCRIT 37.9 % (36.0-48.0); IMMATURE GRANULOCYTES 0.2 % (0-5); LYMPHOCYTES 16.2 % (15-50); MCH 26.6 pg (26.0-34.0); MCV 91.8 fL (80.0-100.0); MONOCYTES 10.3 % (2-11); NEUTROPHILS 71.1 % (40-80); PLATELET COUNT 227 10x3/uL (130-400); RBC 4.13 10x6/uL (4.00-5.40); RDW 26.7 % (11.5-14.5); WBC 8.1 10x3/uL (4.8-10.8)
[2017-12-25 05:02] LABS: CALCIUM 8.9 mg/dL (8.5-10.1)
[2017-12-25 05:11] LABS: ANION GAP 4.7 mmol/L (8-16); POTASSIUM - SERUM 3.7 mmol/L (3.5-5.1)
[2017-12-25 08:46] VITALS: BP 130/81
[2017-12-25 11:45] VITALS: BP 131/83
[2017-12-25 15:59] VITALS: BP 139/61
[2017-12-25 20:00] VITALS: BP 135/75
[2017-12-26] VITALS: BP 129/77
[2017-12-26 05:54] LABS: BASOPHILS 0 % (0-2); EOSINOPHILS 0.5 % (0-7); HEMATOCRIT 37.2 % (36.0-48.0); IMMATURE GRANULOCYTES 0.3 % (0-5); LYMPHOCYTES 13.9 % (15-50); MCH 26.6 pg (26.0-34.0); MCHC 29.6 g/dL (31.0-37.0); MCV 90.1 fL (80.0-100.0); MONOCYTES 11.8 % (2-11); NEUTROPHILS 73.5 % (40-80); PLATELET COUNT 257 10x3/uL (130-400); RBC 4.13 10x6/uL (4.00-5.40); RDW 26.5 % (11.5-14.5); WBC 7.8 10x3/uL (4.8-10.8)
[2017-12-26 06:15] LABS: CALCIUM 8.4 mg/dL (8.5-10.1); CREATININE - SERUM 0.9 mg/dL (0.6-1.3); POTASSIUM - SERUM 3.6 mmol/L (3.5-5.1)
[2017-12-26 06:18] LABS: ANION GAP 4.6 mmol/L (8-16)
[2017-12-26 06:37] VITALS: BP 135/76
[2017-12-26 07:30] VITALS: BP 128/71
[2017-12-26 11:00] VITALS: BP 147/66
[2017-12-26 15:47] VITALS: BP 128/73
[2017-12-26 18:10] LABS: AEROBE ID Final report (()); RESULT 1 Bordetella hinzii (())
[2017-12-27] VITALS: BP 132/77
[2017-12-27 04:00] VITALS: BP 131/71
[2017-12-27 04:43] LABS: BASOPHILS 0.1 % (0-2); EOSINOPHILS 1.7 % (0-7); HEMATOCRIT 37.9 % (36.0-48.0); HEMOGLOBIN 11.4 g/dL (12-16); IMMATURE GRANULOCYTES 0.4 % (0-5); LYMPHOCYTES 21.1 % (15-50); MCH 27.5 pg (26.0-34.0); MCHC 30.1 g/dL (31.0-37.0); MCV 91.3 fL (80.0-100.0); MEAN PLATELET VOLUME 8.8 fL (7.4-10.4); MONOCYTES 9.8 % (2-11); NEUTROPHILS 66.9 % (40-80); PLATELET COUNT 264 10x3/uL (130-400); RBC 4.15 10x6/uL (4.00-5.40); RDW 26.6 % (11.5-14.5); WBC 8.3 10x3/uL (4.8-10.8)
[2017-12-27 05:09] LABS: ANION GAP 3.9 mmol/L (8-16); CALCIUM 8.6 mg/dL (8.5-10.1); POTASSIUM - SERUM 3.8 mmol/L (3.5-5.1)
[2017-12-27 05:32] LABS: CARBON DIOXIDE 42.9 mmol/L (21.0-32.0)
[2017-12-27 07:57] VITALS: BP 138/78
[2017-12-27 12:02] VITALS: BP 133/77
[2017-12-27 16:12] VITALS: BP 123/79
[2017-12-27 20:06] VITALS: BP 148/88
[2017-12-28] VITALS: BP 150/79
[2017-12-28 04:00] VITALS: BP 147/84
[2017-12-28 06:21] LABS: BASOPHILS 0.1 % (0-2); EOSINOPHILS 2.6 % (0-7); HEMATOCRIT 37.7 % (36.0-48.0); HEMOGLOBIN 10.9 g/dL (12-16); IMMATURE GRANULOCYTES 0.6 % (0-5); LYMPHOCYTES 21.5 % (15-50); MCH 26.5 pg (26.0-34.0); MCHC 28.9 g/dL (31.0-37.0); MCV 91.7 fL (80.0-100.0); MEAN PLATELET VOLUME 8.7 fL (7.4-10.4); MONOCYTES 11.7 % (2-11); NEUTROPHILS 63.5 % (40-80); PLATELET COUNT 278 10x3/uL (130-400); RBC 4.11 10x6/uL (4.00-5.40); WBC 7.2 10x3/uL (4.8-10.8)
[2017-12-28 06:38] LABS: ANION GAP 3.6 mmol/L (8-16); CALCIUM 8.7 mg/dL (8.5-10.1); CREATININE - SERUM 0.9 mg/dL (0.6-1.3); POTASSIUM - SERUM 4.3 mmol/L (3.5-5.1)
[2017-12-28 06:43] LABS: CARBON DIOXIDE 42.7 mmol/L (21.0-32.0)
[2017-12-28 07:46] VITALS: BP 143/78
[2017-12-28 11:43] VITALS: BP 130/73
[2017-12-28 15:29] VITALS: BP 129/72
[2017-12-28 20:00] VITALS: BP 129/68
[2017-12-29] VITALS: BP 137/80
[2017-12-29 04:00] VITALS: BP 153/92
[2017-12-29 07:50] VITALS: BP 118/62
[2017-12-29 11:12] VITALS: BP 122/66
[2017-12-29 16:09] VITALS: BP 119/73
[2017-12-29] MEDS ORDERED: LASIX40 MG OR (16:47)
[2018-01-12 10:21] LABS: FUNGUS MYCOLOGY CULTURE Final report (())
[2018-02-09 11:21] LABS: ACID FAST CULTURE Negative (()); ACID FAST SMEAR Negative (())
== END 2017-12-29 18:36 | DRG 291 ==
LOC: D.ER 15:04 → D.ICU 18:28 → D.M2 18:28 → D.EDHOLD 18:28 → D.ICU 18:36 → D.M2 12-05 21:25 → D.ICU 12-15 13:25 → D.M2 12-20 14:26 → D.SDCHOLD 12-20 16:57 → D.M2 12-20 17:00
PROVIDERS: Family Medicine; Internal Medicine Nephrology; Internal Medicine Pulmonary Disease
PROC: 0B948ZZ Drainage of Right Upper Lobe Bronchus, Via Natural or Artificial Opening Endoscopic (ICD-10-PCS; 2017-12-15)
PROC: 0B988ZZ Drainage of Left Upper Lobe Bronchus, Via Natural or Artificial Opening Endoscopic (ICD-10-PCS; 2017-12-15)
PROC: 0B958ZZ Drainage of Right Middle Lobe Bronchus, Via Natural or Artificial Opening Endoscopic (ICD-10-PCS; 2017-12-15)
PROC: 0B978ZZ Drainage of Left Main Bronchus, Via Natural or Artificial Opening Endoscopic (ICD-10-PCS; 2017-12-15)
PROC: 0B998ZZ Drainage of Lingula Bronchus, Via Natural or Artificial Opening Endoscopic (ICD-10-PCS; 2017-12-15)
PROC: 5A09457 Assistance with Respiratory Ventilation, 24-96 Consecutive Hours, Continuous Positive Airway Pressure (ICD-10-PCS; 2017-12-15)
PROC: 05HC33Z Insertion of Infusion Device into Left Basilic Vein, Percutaneous Approach (ICD-10-PCS; 2017-12-15)
PROC: B54NZZA Ultrasonography of Left Upper Extremity Veins, Guidance (ICD-10-PCS; 2017-12-15)
PROC: 0BCB8ZZ Extirpation of Matter from Left Lower Lobe Bronchus, Via Natural or Artificial Opening Endoscopic (ICD-10-PCS; 2017-12-15)
PROC: 0BC38ZZ Extirpation of Matter from Right Main Bronchus, Via Natural or Artificial Opening Endoscopic (ICD-10-PCS; 2017-12-15)
PROC: 0BC68ZZ Extirpation of Matter from Right Lower Lobe Bronchus, Via Natural or Artificial Opening Endoscopic (ICD-10-PCS; 2017-12-15)
PROC: 0BC18ZZ Extirpation of Matter from Trachea, Via Natural or Artificial Opening Endoscopic (ICD-10-PCS; 2017-12-15)
PROC: 0B928ZZ Drainage of Carina, Via Natural or Artificial Opening Endoscopic (ICD-10-PCS; principal; 2017-12-15 11:30)
DX: I13.0 Hypertensive heart and chronic kidney disease with heart failure and stage 1 through stage 4 chronic kidney disease, or unspecified chronic kidney disease (principal); J96.21 Acute and chronic respiratory failure with hypoxia; I50.33 Acute on chronic diastolic (congestive) heart failure; G93.41 Metabolic encephalopathy; J15.6 Pneumonia due to other Gram-negative bacteria; J15.212 Pneumonia due to Methicillin resistant Staphylococcus aureus; J47.0 Bronchiectasis with acute lower respiratory infection; J44.1 Chronic obstructive pulmonary disease with (acute) exacerbation; J44.0 Chronic obstructive pulmonary disease with (acute) lower respiratory infection; M35.1 Other overlap syndromes; N17.9 Acute kidney failure, unspecified; I48.2 Chronic atrial fibrillation; K21.9 Gastro-esophageal reflux disease without esophagitis; I25.10 Atherosclerotic heart disease of native coronary artery without angina pectoris; D64.9 Anemia, unspecified; F41.9 Anxiety disorder, unspecified; I48.91 Unspecified atrial fibrillation; K44.9 Diaphragmatic hernia without obstruction or gangrene; N18.2 Chronic kidney disease, stage 2 (mild); T17.990A Other foreign object in respiratory tract, part unspecified in causing asphyxiation, initial encounter

== ENCOUNTER 2018-01-18 07:08 | Emergency (ER) | payer MEDICARE ==
[2017-12-05 15:35] VITALS: Ht 152.4 cm; Wt 45.5 kg
[~2018-01-18] VITALS: Ht 152.4 cm; Wt 45.5 kg
[~2018-01-18 07:08] MED LIST changes: +ENTRESTO 24 MG1 EACH PO; +MUCOMYST 2800 MG/4 M PO
[2018-01-18 07:10] VITALS: BP 60/41
== END 2018-01-18 08:44 ==
LOC: D.ER 07:08
DX: J96.90 Respiratory failure, unspecified, unspecified whether with hypoxia or hypercapnia (principal); J44.9 Chronic obstructive pulmonary disease, unspecified; I11.0 Hypertensive heart disease with heart failure; I50.9 Heart failure, unspecified